=== PATIENT | female | born 1945 | race Caucasian/White ===

== ENCOUNTER → 2023-08-30 08:42 | Outpatient (REF) | payer MEDICARE, SELFPAY | LOC: RCS 08:42 | PROVIDERS: ATTENDING PHYSICIAN Internal Medicine Cardiovascular Disease; FAMILY PHYSICIAN Internal Medicine | DX: I50.22 Chronic systolic (congestive) heart failure (principal) | CPT/HCPCS: 93306 ==

== ENCOUNTER → 2023-12-31 12:37 | Outpatient (REF) | payer MEDICARE, SELFPAY ==
[2023-12-31 13:30] LABS: % Basophils 0.9 % (0-2); % Eosinophils 1.8 % (0-6); % Immature Granulocytes 0.5 % (0-0.5); % Monocytes 9.6 % (1.7-9.3); % Neutrophils 78.2 % (42.2-75.2); Absolute Basophils 0.1 10^3/uL (0-0.2); Absolute Eosinophils 0.1 10^3/uL (0-0.7); Absolute Lymphocytes 0.6 10^3/uL (1.2-3.4); Absolute Monocytes 0.6 10^3/uL (0.1-0.6); Absolute Neutrophils 5.2 10^3/uL (1.4-6.5); Hematocrit 40.3 % (37.0-47.0); Hemoglobin 12.9 g/dL (12.0-16.0); Mean Corpuscular Hgb 30.4 pg (27.0-31.0); Mean Corpuscular Volume 94.8 fL (81.0-99.0); Mean Platelet Volume 10.3 fL (7.4-10.4); Nucleated Red Blood Cells % 0 %; Platelet Count 226 10^3/uL (130-400); Red Blood Cell Count 4.25 10^6/uL (4.20-5.40); Red Cell Dist. Width 15.6 % (11.5-14.5); White Blood Cell Count 6.7 10^3/uL (4.8-10.8)
[2023-12-31 13:36] LABS: Urine Albumin Negative (Neg - Trace); Urine Bilirubin Negative (Negative); Urine Character Clear (Clear); Urine Color Yellow; Urine Glucose Negative (Negative); Urine Ketone Negative (Negative); Urine Leukocyte 1+ (Negative); Urine Nitrite Negative (Negative); Urine Occult Blood 1+ (Negative); Urine Urobilinogen Negative (Neg - 1+)
[2023-12-31 13:57] LABS: ALT (SGPT) 16 U/L (0-35); AST (SGOT) 33 U/L (14-36); Albumin 3.6 g/dl (3.5-5.0); Alkaline Phosphatase 285 U/L (38-126); Blood Urea Nitrogen 21 mg/dl (7-17); Calcium 9.2 mg/dl (8.4-10.2); Carbon Dioxide 25 mmol/L (22-30); Chloride 103 mmol/L (98-107); Glucose 102 mg/dl (70-99); Potassium 4.3 mmol/L (3.5-5.1); Sodium 141 mmol/L (135-145); Total Bilirubin 0.8 mg/dl (0.2-1.3); Total Protein 7.7 g/dl (6.3-8.2); eGFR 38.03
[2023-12-31 14:32] LABS: Urine Squamous Cell >30 /LPF (Few)
[2023-12-31 14:33] LABS: Urine Urothelial Cell 0-2 /LPF (FEW)
[2023-12-31 14:34] LABS: Urine Bacteria Few (Negative)
== END ==
LOC: REG 12:37
PROVIDERS: ATTENDING PHYSICIAN Nurse Practitioner Family; FAMILY PHYSICIAN Internal Medicine
DX: R10.10 Upper abdominal pain, unspecified (principal)
CPT/HCPCS: 36415; 80053; 81003; 81015; 85025; 87086

== ENCOUNTER 2024-01-04 21:19 | Emergency (ER) | payer MEDICARE, SELFPAY ==
[2024-01-04 21:21] VITALS: BP 111/55
--- NOTE | 2024-01-04 22:07 | ED.SKININJ ---
HPI-Injury
<DEANA Shay - Last Filed: 01/04/24 23:10>
General
Chief Complaint: Skin Surface Trauma
Source: patient and family
Exam Limitations: none
Time Seen by Provider: 01/04/24 22:06
Nursing documentation reviewed up to this point in time: agreed with
History of Present Illness-Injury
Initial Injury comments:
78F presenting for continuing bleeding of superficial abrasion caused by dog scratch on 01/03. Pt went to urgent care originally where they cleaned/dressed the wound. Pt reports the wound continues to bleed and she has had to change the
bandage multiple times, with the last change around 2 hours ago. Pt states dog is known to be UTD on immunizations. Pt is currently on Eliquis. Pt denies fever, chills, muscle aches, purulent discharge from the wound, falls, other trauma, dizziness,
or JUSTIN.
Past History
<DEANA Shay - Last Filed: 01/04/24 23:10>
Past History
ED Past Medical History: Arrthythmia, Cancer (skin cancer), CHF, HTN, NIDDM and Other (Atrial fibrillation and atrial flutter, diabetes, hypertension, nonischemic cardiomyopathy, breast cancer, diverticulitis)
ED Past Surgical History: Cardiac (Ablation, cardioversion 01/2018 ischemic, defibrillator)
Patient has exhibited threatening behavior?: No
PSI?: No
Social History
Tobacco: Non-smoker
Alcohol: None
Drug: None
Personal:
Living: with family
Employment: Retired
Family History
Family History: Other (Hypertension, cirrhosis)
Review of Systems
<DEANA Shay - Last Filed: 01/04/24 23:10>
Review of Systems
Allergies reviewed?: Yes
Other source history: family
Constitutional: Reports no symptoms
EENT: Reports no symptoms
Respiratory: Reports no symptoms
Cardiac: Reports no symptoms
ABD/GI: Reports no symptoms
: Reports no symptoms
Musculoskeletal: Reports no symptoms
Skin: Reports other (mild pain around area of injury)
Skin Exam
<ST JaspalMO - Last Filed: 01/04/24 23:10>
Abrasion
Right Posterior Lateral Knee:
Description of abrasion: superfical/clean (wound caused by dog scratch; clean and measuring ~3cm; not currently bleeding; necrotic flap over wound)
Phy Exam
<DEANA Shay - Last Filed: 01/04/24 23:10>
General Physical Exam
General Presentation: well appearing
General Skin: warm and dry
General Habitus: elderly
General Mental: alert
General Hydration: appears well hydrated
Cardiovascular Exam
Cardiovascular Exam: regular rate/rhythm
Pulmonary Exam
Pulmonary Exam: lungs clear
Course
<ST JaspalMO - Last Filed: 01/04/24 23:10>
Vital Signs
Initial and Last Documented VS:
Initial Vital Signs
Temp Pulse Resp BP Pulse Ox
97.9 F 63 18 111/55 92
01/04/24 21:21 01/04/24 21:21 01/04/24 21:21 01/04/24 21:21 01/04/24 21:21
Last Documented Vital Signs
Temp Pulse Resp BP Pulse Ox
97.9 F 63 18 111/55 92
01/04/24 21:21 01/04/24 21:21 01/04/24 21:21 01/04/24 21:21 01/04/24 21:21
<Kory Tenorio DO - Last Filed: 01/04/24 22:35>
Vital Signs
Initial and Last Documented VS:
Initial Vital Signs
Temp Pulse Resp BP Pulse Ox
97.9 F 63 18 111/55 92
01/04/24 21:21 01/04/24 21:21 01/04/24 21:21 01/04/24 21:21 01/04/24 21:21
Last Documented Vital Signs
Temp Pulse Resp BP Pulse Ox
97.9 F 63 18 111/55 92
01/04/24 21:21 01/04/24 21:21 01/04/24 21:21 01/04/24 21:21 01/04/24 21:21
<DEANA Shay - Last Filed: 01/04/24 23:10>
MDM/Problems Addressed
Differential Diagnosis Includes:
superficial abrasion of R posterior knee
<DEANA Shay - Last Filed: 01/04/24 23:10>
*Critical Care Note
Total Time (30-74mins, 75-104mins- exclusive of procedures): Not Applicable
ED Attending Note
<DEANA Shay - Last Filed: 01/04/24 23:10>
-
Portions of this chart may have been created with voice recognition software.� Occasional wrong word or��sound alike� substitutions may have occurred due to the inherent limitations of voice recognition software.
<Kory Tenorio DO - Last Filed: 01/04/24 22:35>
ED Attending Note
Patient seen and examined by attending physician: Yes
I performed the substantive portion of visit, reviewed & personally made and approve the management plan that is documented in note by myself or DIONISIO.: Yes
ED Attending Note:
I have seen and evaluated the patient with a [id number] encounter. I have spoken to the advance practicer provider and involved in the medical history, the physical exam, medical decision making.
Evaluation and management service: agree unless noted differently below.
Results interpretation: agree unless noted differently below.
Focused HPI: 78-year-old female presenting for evaluation of a dog scratch that continues to bleed. Patient was scratched in the back of her right knee a few days ago. Since then, it has continued to bleed. She is on Eliquis. She did follow-up
with urgent care and was placed on antibiotics and given a bandage. Patient is concerned because it continues to bleed
Physical exam: Sitting bed comfortably. No acute distress. Very small superficial abrasion to right popliteal fossa. No active bleeding but the bandage is covered in dried blood
Medical Decision Making: Gelfoam was placed on top of the exposed dermis. Bulky dressing applied and discussed return precautions. There is no evidence of surrounding cellulitis
Discharge Plan
Departure
Patient Disposition: Home (Routine Discharge)
Date of Disposition: 01/04/24
Time of Disposition: 22:33
Patient with high blood pressure during this ER visit?: No
Discharge Problem:
Wound drainage
Instructions: Wound Care (DC)
Prescriptions:
No Action
ferrous sulfate [FeroSul] 325 MG tablet
325 mg PO QPM
atorvastatin 40 MG tablet
40 mg PO QPM
escitalopram oxalate 10 MG tablet
10 mg PO DAILY
carvedilol [Coreg] 25 mg Tablet
25 mg PO BID
potassium chloride 10 mEq Capsule, Extended Release
10 meq PO BID
doxepin 10 mg Capsule
10 mg PO QPM
calcium polycarbophil [FiberCon] 625 mg Tablet
625 mg PO BID
Eliquis 5 mg Tablet
5 mg PO BID
furosemide 40 MG tablet
40 mg PO BID@0800,1600
Dupixent Syringe 300 mg/2 mL Syringe
300 mg SC Q7D Qty: 0
nifedipine 30 mg Tablet Extended Release
30 mg PO DAILY Qty: 30 0RF
acetaminophen [Tylenol] 325 mg Tablet
650 mg PO Q6HPRN PRN (Reason: mild pain)
cyanocobalamin (vitamin B-12) 1,000 mcg Tablet
1,000 mcg PO DAILY
pantoprazole [Protonix] 40 mg Tablet,Delayed Release (Dr/Ec)
40 mg PO DAILY
insulin lispro [Humalog KwikPen Insulin] 100 unit/mL Insulin Pen
0 sliding scale dose SC ACHS
Rx Instructions:
180-220=6 units, 261-300=10units, 301-350=12units, 351-400=14units
insulin glargine [Basaglar KwikPen U-100 Insulin] 100 unit/mL (3 mL) Insulin Pen
8 unit SC HS
magnesium oxide 400 mg magnesium Tablet
400 mg PO BID
loperamide 2 mg Capsule
2 mg PO Q6HPRN PRN (Reason: diarrhea)
cefdinir 300 mg capsule
300 mg PO BID Qty: 12 0RF
lidocaine [Lidoderm] 5 % adhesive patch,medicated
1 patch topical DAILY Qty: 15 0RF
Activity Restrictions/Additional Instructions:
Please keep the bandage in place for the next few days. Please return for any concern for infection or if it continues to bleed.
Interventions
Interventions:
*Risk Screen - Suicide Last Done: 01/04/24 21:20
*General Assessment Last Done: 01/04/24 22:46
*Neglect/Abuse Screening Last Done: 01/04/24 22:46
ED- Fall Risk Assessment Last Done: 01/04/24 22:46
*ED COVID-19 Vaccine History Last Done: 01/04/24 22:46
*Nursing Disposition Last Done: 01/04/24 22:48
ED-Skin Assessment Last Done: 01/04/24 22:46
Discharge Date and Time
Discharge Date/Time: 01/04/24 22:49
Print Language: [place]
== END 2024-01-04 22:49 | disposition home or self-care (01) ==
LOC: EMR 21:19
PROVIDERS: EMERGENCY PHYSICIAN Student in an Organized Health Care Education/Training Program; FAMILY PHYSICIAN Internal Medicine
DX: Z48.00 Encounter for change or removal of nonsurgical wound dressing (principal); S80.211A Abrasion, right knee, initial encounter; W54.8XXA Other contact with dog, initial encounter; Z79.01 Long term (current) use of anticoagulants
CPT/HCPCS: 99282

== ENCOUNTER → 2024-01-17 10:22 | Outpatient (REF) | payer MEDICARE, SELFPAY | LOC: HWRAD 10:22 | PROVIDERS: ATTENDING PHYSICIAN Nurse Practitioner Family; FAMILY PHYSICIAN Internal Medicine | DX: R10.10 Upper abdominal pain, unspecified (principal) | CPT/HCPCS: 76700 ==

== ENCOUNTER 2024-02-18 21:47 | Inpatient (IN) | payer MEDICARE, SELFPAY ==
--- NOTE | 2024-02-18 15:56 | ED.GENMED ---
ED Provider Triage
<Sarah Yo PA-C - Last Filed: 02/18/24 16:06>
-
Patient seen by provider in Triage?: Seen in Triage
Attestation: A medical screening examination has been initiated by a qualified medical provider. Based on the assessment performed at this time, it has been determined that an emergent medical condition may exist and the patient has been informed
that further medical evaluation and possible additional diagnostic testing may be needed.
HPI: 78yoF here with R leg pain and redness x 1 week. Had a fall around Ashish time. Sent in by her alf for concern for a DVT. Patient currently on Eliquis.
GENERAL: Alert , in no apparent distress
EYE: No visual abnormalities.
NECK: Trachea midline
ENT: No visible abnormalities.
LUNGS: No acute respiratory distress
NEUROLOGICAL: Alert and oriented
SKIN: Skin intact. No visible changes.
MUSCULOSKELETAL: Moving extremities normally
PSYCH: Normal and appropriate interaction.
This is a medical evaluation conducted in person to initiate diagnostic evaluation and provide initial therapeutics. Please see further documentation by the treating clinician.
CBC, CMP, and venous duplex ordered.
History of Present Illness
<Sarah Yo PA-C - Last Filed: 02/18/24 16:06>
General
Chief Complaint: DVT/Possible Blood Clot
Time Seen by Provider: 02/18/24 17:29
<Efra Aponte PA-C - Last Filed: 02/18/24 20:38>
History of Present Illness
History of Present Illness:
78-year-old female with history of insulin-dependent diabetes and A-fib on Eliquis presents to the emergency department for evaluation of right lower extremity redness and pain for the past 10 days. She had a minor fall and suffered a minor
injury/wound to the right popliteal area, since that time has had progressively worsening redness extending up the right thigh. She is also concern for 'belly breathing' that typically accompanies acute CHF for her. Has been compliant with her
anticoagulants and diuretics
Past History
<Sarah Yo PA-C - Last Filed: 02/18/24 16:06>
Past History
ED Past Medical History: Arrthythmia, Cancer (skin cancer), CHF, HTN, NIDDM and Other (Atrial fibrillation and atrial flutter, diabetes, hypertension, nonischemic cardiomyopathy, breast cancer, diverticulitis)
ED Past Surgical History: Cardiac (Ablation, cardioversion 01/2018 ischemic, defibrillator)
Patient has exhibited threatening behavior?: No
PSI?: No
Social History
Tobacco: Non-smoker
Alcohol: None
Drug: None
Personal:
Living: with family
Employment: Retired
Family History
Family History: Other (Hypertension, cirrhosis)
Review of Systems
<Efra Aponte PA-C - Last Filed: 02/18/24 20:38>
Review of Systems
Allergies reviewed?: Yes
All Other Systems: ROS reviewed and negative except as documented in HPI and ROS
Phy Exam
<Efra Aponte PA-C - Last Filed: 02/18/24 20:38>
Physical Exam
Physical Exam:
GEN: Well appearing, NAD, WDWN
HEENT: Oral mucosa moist, no scleral icterus
Cardiac: Regular rate
Lung: Tachypneic with abdominal breathing, diminished right breath sounds
MSK: Diffuse edema of the right lower extremity, linear erythema extending from the right popliteal fossa proximally along the medial thigh, markedly tender to palpation
Skin: Good color, no pallor or jaundice, no rashes
Neuro: AO x3, moves all extremities freely
Psych: Calm, cooperative
Course
<Sarah Yo PA-C - Last Filed: 02/18/24 16:06>
Orders/Labs/Results
Orders:
Orders
02/18/24 15:52
Periph Venous Lwr Ext Rt US [US Periph Venous LOWER Ext RT] Urgent
Comment:
Reason For Exam: pain and swelling
02/18/24 16:04
Complete Blood Count/With Diff Urgent
Comprehensive Metabolic Panel Urgent
02/18/24 18:30
IV Insert/Care/Rem.- Treatment PRN
CR Chest - 2 Views Urgent
Comment:
Reason For Exam: SOB
02/18/24 18:31
CeFAZolin 2 GRAM [Ancef] 2 grams in 10 ml IV NOW
02/18/24 18:54
NT-proBNP Urgent
Troponin I Urgent
02/18/24 19:43
Furosemide [Lasix] 40 mg IV ONCE ONE
Abnormal Lab Results
02/18/24 02/18/24
16:04 19:02
MCHC 32.9 L g/dL
(33.0-37.0)
RDW 15.6 H %
(11.5-14.5)
MPV 10.5 H fL
(7.4-10.4)
Absolute Lymphs (auto) 0.6 L 10^3/uL
(1.2-3.4)
Neutrophils % 79.8 H %
(42.2-75.2)
Lymphocytes % 7.9 L %
(20.5-51.1)
Sodium 133 L mmol/L
(135-145)
Carbon Dioxide 21 L mmol/L
(22-30)
BUN 31 H mg/dl
(7-17)
Creatinine 2.0 H mg/dL
(0.6-1.0)
Glucose 145 H mg/dl
(70-99)
Alkaline Phosphatase 304 H U/L
(38-126)
POC Glucose 129 H mg/dl
(70-99)
02/18/24 16:04
02/18/24 16:04
Vital Signs
Initial and Last Documented VS:
Initial Vital Signs
Temp Pulse Resp BP Pulse Ox
97.4 F 86 17 107/51 97
02/18/24 15:58 02/18/24 15:58 02/18/24 15:58 02/18/24 15:58 02/18/24 15:58
Last Documented Vital Signs
Temp Pulse Resp BP Pulse Ox
97.4 F 65 20 117/51 90
02/18/24 15:58 02/18/24 20:22 02/18/24 20:22 02/18/24 20:22 02/18/24 20:22
<fEra Aponte PA-C - Last Filed: 02/18/24 20:38>
Orders/Labs/Results
Orders:
Orders
02/18/24 15:52
Periph Venous Lwr Ext Rt US [US Periph Venous LOWER Ext RT] Urgent
Comment:
Reason For Exam: pain and swelling
02/18/24 16:04
Complete Blood Count/With Diff Urgent
Comprehensive Metabolic Panel Urgent
02/18/24 18:30
IV Insert/Care/Rem.- Treatment PRN
CR Chest - 2 Views Urgent
Comment:
Reason For Exam: SOB
02/18/24 18:31
CeFAZolin 2 GRAM [Ancef] 2 grams in 10 ml IV NOW
02/18/24 18:54
NT-proBNP Urgent
Troponin I Urgent
02/18/24 19:43
Furosemide [Lasix] 40 mg IV ONCE ONE
Abnormal Lab Results
02/18/24 02/18/24
16:04 19:02
MCHC 32.9 L g/dL
(33.0-37.0)
RDW 15.6 H %
(11.5-14.5)
MPV 10.5 H fL
(7.4-10.4)
Absolute Lymphs (auto) 0.6 L 10^3/uL
(1.2-3.4)
Neutrophils % 79.8 H %
(42.2-75.2)
Lymphocytes % 7.9 L %
(20.5-51.1)
Sodium 133 L mmol/L
(135-145)
Carbon Dioxide 21 L mmol/L
(22-30)
BUN 31 H mg/dl
(7-17)
Creatinine 2.0 H mg/dL
(0.6-1.0)
Glucose 145 H mg/dl
(70-99)
Alkaline Phosphatase 304 H U/L
(38-126)
POC Glucose 129 H mg/dl
(70-99)
02/18/24 16:04
02/18/24 16:04
Vital Signs
Initial and Last Documented VS:
Initial Vital Signs
Temp Pulse Resp BP Pulse Ox
97.4 F 86 17 107/51 97
02/18/24 15:58 02/18/24 15:58 02/18/24 15:58 02/18/24 15:58 02/18/24 15:58
Last Documented Vital Signs
Temp Pulse Resp BP Pulse Ox
97.4 F 65 20 117/51 90
02/18/24 15:58 02/18/24 20:22 02/18/24 20:22 02/18/24 20:22 02/18/24 20:22
<Efra Aponte PA-C - Last Filed: 02/18/24 20:38>
MDM/Problems Addressed
MDM/Problems Addressed:
Patient with extensive cellulitis of the right lower extremity, certainly concerning that she has chronic kidney disease and thus is high risk for infectious complications. Additionally she appears to be moderately volume overloaded and thus will
benefit from inpatient stay for diuresis while monitoring renal function
<Efra Aponte PA-C - Last Filed: 02/18/24 20:38>
*Critical Care Note
Total Time (30-74mins, 75-104mins- exclusive of procedures): Not Applicable
ED Attending Note
<Sarah Yo PA-C - Last Filed: 02/18/24 16:06>
-
Portions of this chart may have been created with voice recognition software.� Occasional wrong word or��sound alike� substitutions may have occurred due to the inherent limitations of voice recognition software.
Discharge Plan
Departure
Patient Disposition: Admit
Date of Disposition: 02/18/24
Time of Disposition: 20:14
Admit to: Med/Surg
Presentation/result/management discussed w/ accepting MD/DO: Hospitalist
Discharge Problem:
Cellulitis of leg, right, Acute HFrEF (heart failure with reduced ejection fraction)
Prescriptions:
No Action
ferrous sulfate [FeroSul] 325 MG tablet
325 mg PO QPM
atorvastatin 40 MG tablet
40 mg PO QPM
escitalopram oxalate 10 MG tablet
10 mg PO DAILY
carvedilol [Coreg] 25 mg Tablet
25 mg PO BID
potassium chloride 10 mEq Capsule, Extended Release
10 meq PO QPM
doxepin 10 mg Capsule
10 mg PO QPM
calcium polycarbophil [FiberCon] 625 mg Tablet
625 mg PO BID
Eliquis 5 mg Tablet
5 mg PO BID
furosemide 40 MG tablet
40 mg PO BID@0800,1600
nifedipine 30 mg Tablet Extended Release
30 mg PO DAILY Qty: 30 0RF
cyanocobalamin (vitamin B-12) 1,000 mcg Tablet
1,000 mcg PO QPM
pantoprazole [Protonix] 40 mg Tablet,Delayed Release (Dr/Ec)
40 mg PO DAILY
insulin lispro [Humalog KwikPen Insulin] 100 unit/mL Insulin Pen
0 sliding scale dose SC BID
insulin glargine [Basaglar KwikPen U-100 Insulin] 100 unit/mL (3 mL) Insulin Pen
6 unit SC HS
magnesium oxide 400 mg magnesium Tablet
400 mg PO QPM
cetirizine 10 mg Tablet
10 mg PO DAILY
Referrals:
Clay Gibbs DO [Family Provider] -
Interventions
Interventions:
*Risk Screen - Suicide Last Done: 02/18/24 16:00
*General Assessment Last Done: 02/18/24 16:00
*Neglect/Abuse Screening Last Done: 02/18/24 16:00
*ED COVID-19 Vaccine History Last Done: 02/18/24 16:00
ED- Cardiac Assessment Last Done: 02/18/24 18:28
ED- Pulmonary Assessment Last Done: 02/18/24 18:28
ED-Peripheral Vascular Assessment Last Done: 02/18/24 18:28
ED-Skin Assessment Last Done: 02/18/24 18:28
Discharge Date and Time
Print Language: SAMMARINESE
[2024-02-18 15:58] VITALS: BP 107/51
[2024-02-18 16:30] LABS: % Basophils 0.9 % (0-2); % Eosinophils 2.3 % (0-6); % Immature Granulocytes 0.4 % (0-0.5); % Lymphocytes 7.9 % (20.5-51.1); % Monocytes 8.7 % (1.7-9.3); % Neutrophils 79.8 % (42.2-75.2); Absolute Basophils 0.1 10^3/uL (0-0.2); Absolute Eosinophils 0.2 10^3/uL (0-0.7); Absolute Lymphocytes 0.6 10^3/uL (1.2-3.4); Absolute Monocytes 0.6 10^3/uL (0.1-0.6); Absolute Neutrophils 5.6 10^3/uL (1.4-6.5); Hematocrit 40.4 % (37.0-47.0); Hemoglobin 13.3 g/dL (12.0-16.0); Mean Corp Hgb Conc. 32.9 g/dL (33.0-37.0); Mean Corpuscular Hgb 30.2 pg (27.0-31.0); Mean Corpuscular Volume 91.8 fL (81.0-99.0); Mean Platelet Volume 10.5 fL (7.4-10.4); Nucleated Red Blood Cells % 0 %; Platelet Count 233 10^3/uL (130-400); Red Cell Dist. Width 15.6 % (11.5-14.5); White Blood Cell Count 7.1 10^3/uL (4.8-10.8)
[2024-02-18 16:35] LABS: ALT (SGPT) 15 U/L (0-35); AST (SGOT) 30 U/L (14-36); Albumin 3.8 g/dl (3.5-5.0); Alkaline Phosphatase 304 U/L (38-126); Blood Urea Nitrogen 31 mg/dl (7-17); Calcium 9.1 mg/dl (8.4-10.2); Carbon Dioxide 21 mmol/L (22-30); Chloride 100 mmol/L (98-107); Glucose 145 mg/dl (70-99); Potassium 4.7 mmol/L (3.5-5.1); Sodium 133 mmol/L (135-145); Total Bilirubin 1.1 mg/dl (0.2-1.3); Total Protein 7.7 g/dl (6.3-8.2); eGFR 24.79
[2024-02-18 19:07] LABS: Glucose - Point of Care 129 mg/dl (70-99)
[2024-02-18 19:36] LABS: NT-proBNP 11200 pg/ml; Troponin I < 0.012 ng/ml
[2024-02-18] MEDS: ANCEF 10 IV (19:42)
[2024-02-18] MEDS: LASIX 40 MG IV (20:16)
[2024-02-18 20:22] VITALS: BP 117/51
[2024-02-18 20:23] VITALS: BMI 21.7
--- NOTE | 2024-02-18 20:24 | HPS.HSE ---
Family Physician
-
Family Physician: Clay Gibbs
Chief Complaint
-
right LE redness
History of Present Illness
78-year-old female with history of insulin-dependent diabetes and A-fib on Eliquis presents to the emergency department for evaluation of right lower extremity redness for more than a week. She had a minor fall and suffered a minor injury/wound to
the right popliteal area, since that time has had progressively worsening redness extending up the right thigh. She is also concern for 'belly breathing' that typically accompanies acute CHF for her. Has been compliant with her anticoagulants and
diuretics. denied JUSTIN, dizzy or syncope. denied runny nose,congestion, cough. denied abdominal pain,n,v,d. denied dysuria or hematuria.
patient received Lasix in Er. admitting for further management.
patient also received iv Ancef in Er.admitting for further managements.
Medical History
Past Medical History
Past Medical History: Reports Other
Additional Past Medical History:
GERD
Hyperlipidemia
Hypertension
A flutter
Diabetes
Depression
Iron deficiency anemia
Chronic systolic heart failure
AICD
Pulmonary hypertension
CAD
Permanent A-fib
Past Surgical History: Reports Other
Additional Past Surgical History:
Cardioversion
Cataract right eye
Left breast lumpectomy
Pacemaker placement
Cardiac ablation
Social History
Tobacco: Non-smoker
Alcohol: None
Drug: None
Personal:
Living: With Family
Family History
Family History: Not pertinent
Allergies / Home Medications
Allergies reflects when Allergies were last updated in trend[employer].
Home Medications with original date entered in trend[employer]
Allergy/Medication List:
Allergies
Allergy/AdvReac Type Severity Reaction Status Date / Time
RICK Inhibitors Allergy upset Verified 02/18/24 15:57
stomach
amoxicillin [From Augmentin] Allergy upset Verified 02/18/24 15:57
stomach
clavulanic acid Allergy upset Verified 02/18/24 15:57
[From Augmentin] stomach
Home Medications
ferrous sulfate 325 mg (65 mg iron) tablet (FeroSul) 325 mg PO QPM Supplement 06/11/18
atorvastatin 40 mg tablet 40 mg PO QPM High cholesterol 11/08/20
escitalopram oxalate 10 mg tablet 10 mg PO DAILY Depression 05/04/21
apixaban 5 mg tablet (Eliquis) 5 mg PO BID Blood clot prevention/tx 03/28/22
calcium polycarbophil 625 mg tablet (FiberCon) 625 mg PO BID Constipation 03/28/22
carvedilol 25 mg tablet (Coreg) 25 mg PO BID Heart Failure 03/28/22
doxepin 10 mg capsule 10 mg PO QPM Depression 03/28/22
furosemide 40 mg tablet 40 mg PO BID@0800,1600 Fluid retention/Swelling 03/28/22
potassium chloride 10 mEq capsule,extended release 10 meq PO QPM Electrolyte Repletion 03/28/22
nifedipine 30 mg tablet,extended release 30 mg PO DAILY Blood pressure #30 tabs 05/11/22
cyanocobalamin (vitamin B-12) 1,000 mcg tablet 1,000 mcg PO QPM 09/25/22
insulin glargine 100 unit/mL (3 mL) subcutaneous pen (Basaglar KwikPen U-100 Insulin) 6 unit SC HS 09/25/22
insulin lispro 100 unit/mL subcutaneous pen (Humalog KwikPen (U-100) Insulin) 0 sliding scale dose SC BID 09/25/22
magnesium oxide 400 mg PO QPM 09/25/22
pantoprazole 40 mg tablet,delayed release (Protonix) 40 mg PO DAILY 09/25/22
cetirizine 10 mg tablet 10 mg PO DAILY 02/18/24
Review of Systems
-
Constitutional: Reports No Symptoms
EENT: Reports No Symptoms
Respiratory: Reports Trouble Breathing
Cardiac: Reports No Symptoms
Abdomen/GI: Reports No Symptoms
: Reports No Symptoms
Musculoskeletal: Reports No Symptoms
Skin: Reports Other (right LE redness, wound)
Neurological: Reports No Symptoms
Endocrine: Reports No Symptoms
Hematologic/Lymphatic: Reports No Symptoms
Psych: Reports No Symptoms
Physical Exam
Vital Signs
Vital Signs
Temp Pulse Resp BP Pulse Ox
97.4 F 65 20 117/51 90
02/18/24 15:58 02/18/24 20:22 02/18/24 20:22 02/18/24 20:22 02/18/24 20:22
Physical Exam
General: Well Developed, Well Nourished and No Apparent Distress
HEENT: NormoCephalic, Moist mucous membranes and Atraumatic
Respiratory: Clear
Cardiac: S1/S2 and Regular Rhythm; No Murmur or Rub
GI: Soft, Non Tender, Non Distended and Normal Bowel Sounds; No Organomegaly
Rectal: Deferred by Provider
Musculoskeletal: No Clubbing, No Cyanosis and No Edema
Skin: Other (right Le edema, skin abrasion); No Rash
Neuro: AO x 3 and Nonfocal/grossly intact
Psych: Calm
Laboratory Results
-
02/18/24 16:04
02/18/24 16:04
Laboratory Results
Total Bilirubin 1.1 mg/dl (0.2-1.3) 02/18/24 16:04
AST 30 U/L (14-36) 02/18/24 16:04
ALT 15 U/L (0-35) 02/18/24 16:04
Alkaline Phosphatase 304 U/L (38-126) H 02/18/24 16:04
Troponin I < 0.012 ng/ml 02/18/24 18:54
Data Reviewed
-
Diagnostic Radiology: Report Reviewed by me
Lab Data: Labs Reviewed by me
Impression/Plan
-
# Right lower extremity cellulitis
-Duplex negative for deep
-iv Ancef continued
-Tylenol prn for fever and pain
#acute on chronic CHF's
-BNP 11 200
-Chest x-ray with pleural effusion, cardiomegaly
-iv Lasix 40bid
-strict I &O
-daily weight
-fluid restriction
-ECHO with EF of 45-50%
# KRYSTAL on CKD 3B likely cardiorenal syndrome
# Hyponatremia likely fluid overload
-diuretics
-fluid restriction
-BMP in am
#Parox Atrial Fibrillation
- continue Eliquis
- continue Coreg
-obtain EKG
#HLD
-statin continued
#depression
-doxepin,escitalopram continued
Essential hypertension - stable.
-nifedipine continued
#GERD
_PPI continued
#DM2
glargine 3u at hs
-sliding scale
-CHO diet
DVT ppx: Eliquis
Code: Full
--- NOTE | 2024-02-18 20:48 | W.PN.UPDATE ---
Update Note
Progress Note Update
This note serves as an addendum to the H&P by cpht DIONISIO Leticia COOPER
HPI
78F HX IDDM, Prx AF, Eliquis, HX Ablation, cardioversion 01/2018 , defibrillator implant, chr HFmEF, NICM, severe PHT, CKD3b, HTN, NIDDM seen at ER:
- minor fall and suffered a minor injury/wound to the right popliteal area
- complicated by progressively worsening redness extending up the right thigh in last 10 days
Vital Signs
Temp Pulse Resp BP Pulse Ox
97.4 F 65 20 117/51 90
02/18/24 15:58 02/18/24 20:22 02/18/24 20:22 02/18/24 20:22 02/18/24 20:22
PE:
BMI 16
GEN: NAD
HEENT: Oral mucosa moist, no scleral icterus
Lung: Tachypneic, diminished right breath sounds
Cardiac: RRR S1 S2
GI; benign abdomen
Rt Ara: diffuse edema. Proximal wound covered by scab. linear erythema extending from the right popliteal fossa proximally along the medial thigh. Markedly tender to palpation
Psych: calm, cooperative
Laboratory Tests
05/07/21 12/31/23 02/18/24
04:33 13:05 16:04
WBC 7.1
Sodium 133 L
Carbon Dioxide 21 L
BUN 31 H
Creatinine 1.4 H 2.0 H
eGFR 38.03 24.79
Troponin I < 0.012
Opr-D-Pkhvimppphe Pept 3900 [id number]
POC Glucose 129
CXR; Small right pleural effusion. Cardiomegaly
08/30/23 ECHO
1. LVEF 45-50
2. Right ventricle: Normal size. An ICD wire is noted in the right ventricle
3. Atria: Moderate biatrial dilation
4. Mitral valve: Moderate to severe mitral regurgitation. No mitral stenosis
5. Aortic valve: Mildly thickened trileaflet aortic valve with moderate aortic insufficiency
6. Tricuspid valve: Moderate to severe tricuspid regurgitation with severe pulmonary hypertension and estimated pulmonary artery systolic pressures of 65- 70 mmHg
7. When compared to the most recent echocardiogram from 05/30/2022, The LVEF has improved slightly from 35-40% to 45-50%. Estimated pulmonary artery systolic pressures have increased from 53-58 mmHg to 65-70 mmHg
ASSESSMENT & PLAN
RLE cellulitis with lymphangitis
Afebrile. Nl WCC
Suspect infected skin laceration s/p mechanical fall
No prior MRSA screen
- check MRSA screen
- Agree with IV Cefazolin 2 gm q8h
Acute on chronic Chr HFmEF
Acute Hypoxic RI needs NC O2 due to acut HF
Interval improvement of LVEF 45-50 by serail ECHO
Severe PHT
- S/P IV Lasix 40 one dose at ER. Then IV Lasix 40 BID
- cont. Carvedilol
- Daily Wt + daily BMP
- DCA Card consult
Chronically elevated LFTs susct chr hepatic congestion due to sevre PHT
Prx AF
- continue Eliquis
- continue Coreg
HX CKD3b with KRYSTAL - cardiorenal syndrome vs volume contraction ?
- Diuresis and observe Cr
Benign Hypertension
- continue Nifedipine
T2DM
Last A1c is 8.0% in August 2023
- cont. Lantus 25 units HS, Novolog 7 units
Eczema/Atopic Dermatitis
- on Dupilumab
DVT ppx: Eliquis
Code: Full
IP TLM
[2024-02-18 20:56] VITALS: BP 126/59
[2024-02-18 21:00] VITALS: BP 123/75
[2024-02-18 22:00] VITALS: BP 118/53
[2024-02-18 22:18] LABS: Glucose - Point of Care 141 mg/dl (70-99)
[2024-02-18 23:00] VITALS: BP 118/50
[2024-02-18] MEDS: LANTUS 0.03 UNITS SC (23:52)
[2024-02-19] VITALS (18 sets, daily range): BP systolic 108–152; BP diastolic 51–74; PULSE 111; O2SAT 89; BMI 21.4
[2024-02-19] MEDS: ANCEF 10 IV (04:09)
[2024-02-19 06:09] LABS: Blood Urea Nitrogen 28 mg/dl (7-17); Calcium 8.8 mg/dl (8.4-10.2); Carbon Dioxide 27 mmol/L (22-30); Chloride 101 mmol/L (98-107); Estimated Creatinine Clearance 17 ml/min; Glucose 82 mg/dl (70-99); HDL Cholesterol 40 mg/dl; LDL Cholesterol, Calculated 49 mg/dl; Magnesium 2.1 mg/dl (1.6-2.3); Potassium 3.8 mmol/L (3.5-5.1); Sodium 138 mmol/L (135-145); Total Cholesterol 105 mg/dl (50-199); Triglyceride 84 mg/dl (10-149); Very Low Density Lipoprotein 16 mg/dl (0-30); eGFR 26.36
[2024-02-19 06:34] LABS: TSH Reflex To Free T4 2.05 uIU/ml (0.47-4.68)
--- NOTE | 2024-02-19 07:20 | CON.CAR ---
Addendum entered and electronically signed by Dannie Painter MD 02/19/24 09:54:
I saw and examined the patient.
The Correction Officer's note was reviewed and I agree with the note.
Comment:
GEN: No distress, awake, Ox3
HEENT: supple, anicteric, mmm
LUNGS: dec BS at bases
CV: Reg, S1/S2, 2/6 syst apex
ABD: soft, BS+, NT/ND
EXT: No edema
NEURO: Gross non-focal
SKIN: No rash
Plan:
She has a past medical history of chronic heart failure with mildly reduced ejection fraction, EF 45 to 50%, moderate to severe MR/TR, permanent A-fib status post PRICE LISTER-D and AV node ablation who presents with right lower extremity pain. She states
she has had pain for several days and she was on the floor of her daughter's home. She was also having some abdominal bloating. Upon arrival emergency room she was found to have acute heart failure with an elevated proBNP and right pleural
effusion. She denies any chest pains.
Check repeat echocardiogram.
Start Lasix 40 mg IV twice daily. Continue Coreg 25 mg p.o. twice daily.
She has not tolerated RICK inhibitors in the past. Could consider trial of angiotensin receptor brad. Will await repeat echocardiogram to reevaluate LVEF. For now continue nifedipine.
Continue Eliquis for permanent A-fib status post AV node ablation and PRICE LISTER-D
Will evaluate for cost for SLG 2 inhibitor
Original Note:
Consultation
Consultation Request
Date/Time Consultation Requested: 02/18/24 at 2158
Date/Time Consultation Performed: 02/19/24 at 0747
Requesting Provider: Dr. Drake Brownlee
Performing Provider: Dr. Painter
Reason for Consultation: Acute HF, MR
Medical History
-
History of Present Illness:
Patient came to [facility] ER yesterday with RLE pain and was admitted with acute HF and cardiology has been consulted. Patient was seen in the cardiology office 08/01/2023 and at that time appeared to be in acute HF and was started on
Lasix 40 mg twice daily. Patient called the office and also sent web encounters describing overall improvement in edema in the last couple of months. Patient says that over the holiday she was at her daughter's home and rolled out of her
guest room bed and landed on the floor injuring her RLE including a deeper abrasion and pain. Patient felt as though she was improving, but then yesterday the pain became worse and so she came to [facility] ER. LE U/S showed no evidence
of DVT. CXR was read as a small right pleural effusion and proBNP was elevated at 11,200. Patient complains of abdominal bloating, but denies any orthopnea. She also notes some GRAHAM, but again this was not her primary complaint coming to the ER.
Patient was given Lasix 40 mg IV x 1 in the ER last night reports increased urine output, but no appreciable difference in abdominal bloating.
PMH:CKD 3b
Chronic HFrEF
CM EF 45% by echo 08/30/23
Severe MR
CM EF was 25-30% by echo 2020, improved to 45% by echo 08/30/23
Pulmonary hypertension
s/p Medtronic PRICE LISTER-D
Permanent Afib
s/p PVI 06/2018
s/p AVJ ablation 12/05/20
Paroxysmal atrial Flutter
s/p CTI RFA 12/2017
Chronic Eliquis OAC
HTN
DM
Breast cancer s/p lumpectomy
H/o lung micronodules
H/o T12 compression fracture
Past Medical History
Past Medical History: Other (in HPI)
Past Surgical History: Cardiac (PVI 2017, AVN ablation 11/2020, PPM)
Social History
Tobacco: Non-Smoker
Alcohol: None
Drug: None
Personal:
Living: With Family
Family History
Family History: Cancer, Hypertension and Other (CHF)
Allergies / Home Medications
Allergy/AdvReac Type Severity Reaction Status Date / Time
RICK Inhibitors Allergy upset Verified 02/18/24 15:57
stomach
amoxicillin [From Augmentin] Allergy upset Verified 02/18/24 15:57
stomach
clavulanic acid Allergy upset Verified 02/18/24 15:57
[From Augmentin] stomach
�Medication �Instructions �Recorded �Confirmed �Type
ferrous sulfate 325 mg (65 mg 325 mg PO QPM Supplement 06/11/18 02/18/24 History
iron) tablet (FeroSul)
atorvastatin 40 mg tablet 40 mg PO QPM High cholesterol 11/08/20 02/18/24 History
escitalopram oxalate 10 mg tablet 10 mg PO DAILY Depression 05/04/21 02/18/24 History
apixaban 5 mg tablet (Eliquis) 5 mg PO BID Blood clot 03/28/22 02/18/24 History
prevention/tx
calcium polycarbophil 625 mg 625 mg PO BID Constipation 03/28/22 02/18/24 History
tablet (FiberCon)
carvedilol 25 mg tablet (Coreg) 25 mg PO BID Heart Failure 03/28/22 02/18/24 History
doxepin 10 mg capsule 10 mg PO QPM Depression 03/28/22 02/18/24 History
furosemide 40 mg tablet 40 mg PO BID@0800,1600 Fluid 03/28/22 02/18/24 History
retention/Swelling
potassium chloride 10 mEq 10 meq PO QPM Electrolyte Repletion 03/28/22 02/18/24 History
capsule,extended release
nifedipine 30 mg tablet,extended 30 mg PO DAILY Blood pressure #30 05/11/22 02/18/24 Rx
release tabs
cyanocobalamin (vitamin B-12) 1,000 mcg PO QPM 09/25/22 02/18/24 History
1,000 mcg tablet
insulin glargine 100 unit/mL (3 6 unit SC HS 09/25/22 02/18/24 History
mL) subcutaneous pen (Basaglar
KwikPen U-100 Insulin)
insulin lispro 100 unit/mL 0 sliding scale dose SC BID 09/25/22 02/18/24 History
subcutaneous pen (Humalog KwikPen
(U-100) Insulin)
magnesium oxide 400 mg PO QPM 09/25/22 02/18/24 History
pantoprazole 40 mg tablet,delayed 40 mg PO DAILY 09/25/22 02/18/24 History
release (Protonix)
cetirizine 10 mg tablet 10 mg PO DAILY 02/18/24 02/18/24 History
Review of Systems
-
History Source: Patient
All other systems: Negative unless noted
Physical Exam
Vital Signs
Temp Pulse Resp BP Pulse Ox
98.6 F 60 19 136/61 92
02/18/24 22:23 02/19/24 04:01 02/19/24 04:01 02/19/24 04:01 02/19/24 04:01
GEN: NAD. AAOx3
HEENT: EOMI, MMM
LUNGS: 3 L NC. Clear anterolaterally without wheeze
CV: Reg, S1/S2, no murmur
ABD: soft, BS+, NT, ND
EXT: Trace B/L LE edema. Right popliteal fossa ecchymosis and firmness. No clubbing, cyanosis or lesions B/L
NEURO: Gross non-focal
SKIN: Warm, dry and pink. No rash
Lab Results
02/18/24 16:04
02/19/24 05:29
Troponin I < 0.012 ng/ml 02/18/24 18:54
Gus-P-Ekvyzljmiok Pept 14563 pg/ml 02/18/24 18:54
Impression / Plan
-
PCP: Clay Barahona
CDY: Erick Sangrigoli
Impression:
Admitted with RLE pain and CHF 02/18/24
KRYSTAL on CKD 3b
Acute HFrEF
CM EF 45% by echo 08/30/23
Severe MR
CM EF was 25-30% by echo 2020, improved to 45% by echo 08/30/23
Pulmonary hypertension
s/p Medtronic PRICE LISTER-D
Permanent Afib
s/p PVI 06/2018
s/p AVJ ablation 12/05/20
Paroxysmal atrial Flutter
s/p CTI RFA 12/2017
Chronic Eliquis OAC
HTN
DM
Breast cancer s/p lumpectomy
H/o lung micronodules
H/o T12 compression fracture
Echo 10/20/20: Moderately to severely reduced EF 25-30% with global hypokinesis, stage III diastolic dysfunction, mildly dilated RA, moderate to severe MR, mild aortic regurgitation
Echo 08/30/2023: EF 45 to 50%, moderate to severe MR, no MS, moderate aortic insufficiency, moderate to severe TR with severe PHTN and PAP 65 to 70 mmHg
Plan:
-Patient came to [facility] ER yesterday with RLE pain and was admitted with acute HF and cardiology has been consulted. Patient was seen in the cardiology office 08/01/2023 and at that time appeared to be in acute HF and was started on
Lasix 40 mg twice daily. Patient called the office and also sent web encounters describing overall improvement in edema in the last couple of months. Patient says that over the holiday she was at her daughter's home and rolled out of her
guest room bed and landed on the floor injuring her RLE including a deeper abrasion and pain. Patient felt as though she was improving, but then yesterday the pain became worse and so she came to [facility] ER. LE U/S showed no evidence
of DVT. CXR was read as a small right pleural effusion and proBNP was elevated at 11,200. Patient complains of abdominal bloating, but denies any orthopnea. She also notes some GRAHAM, but again this was not her primary complaint coming to the ER.
Patient was given Lasix 40 mg IV x 1 in the ER last night reports increased urine output, but no appreciable difference in abdominal bloating.
-ECG has not yet been performed this admission. ECG ordered by me. ECG reviewed by me shows typical atrial flutter with a heart rate in the 60s and QTc at 518.
-proBNP is elevated at 11,200, but is not the patient's highest level ever. There is a small right pleural effusion, but no evidence of pulmonary edema. Patient does have bloating and GRAHAM so agree with attempted IV diuresis with Lasix 40 mg IV
BID. Patient was taking Lasix 40 mg PO BID prior to admission. If no appreciable diuresis then could consider increasing dose of IV Lasix
-Recheck echo. EF was previously as low as 25% in 2020, but most recently had improved to 45 to 50% by echo 08/30/2023. Distally patient has moderate to severe MR.
-It is not clear if patient has ever been considered for mitral valve intervention.
-Outpatient dose of Coreg 25 mg twice daily has been continued
-Patient has a history of dyspepsia related to RICK inhibitor. Pending renal function with diuresis could consider adding ARB
-Patient has a history of allergic reaction to Jardiance. Reaction unknown.
-Patient with known permanent A-fib/flutter and is status post AVJ ablation in 2020. Heart rates controlled on ECG and telemetry review.
-Outpatient dose of Eliquis 5 mg BID (Cre 1.9, age 78, wt 49.6 kg) has been continued, but dose should be lowered to 2.5 mg BID based on changes to age, Cre and wt. Order changed by me.
[2024-02-19] MEDS: NOVOLOG FLEXPEN-LOW RESISTANCE SC ×2 (07:57→12:18)
[2024-02-19 07:58] LABS: Glucose - Point of Care 77 mg/dl (70-99)
[2024-02-19 09:03] LABS: Glycohemoglobin (HgbA1c) 5.8 % (4.0-5.6)
--- NOTE | 2024-02-19 09:32 | W.PN.HOSP.TC ---
Today's Communication/Plan
-
Maintain diuretics
Follow renal function
Follow weight
continue ancef
Assessment / Plan
Assessment / Plan
# Right lower extremity cellulitis
-Lower extremity venous Doppler negative
-Patient to mechanical fall few days back and scabbed up wound on right lower extremity and right upper arm
-Nothing on exam to suggest deeper collection/purulent cellulitis
-History of diabetes, maintain on Ancef for now
# Acute on chronic midrange heart failure
Severe MR
Pulmonary hypertension
-BNP 11 200
-Chest x-ray with pleural effusion, cardiomegaly. Surprisingly on exam no crackles/no leg swelling
-Maintain on IV Lasix 40 mg twice daily
-Patient have lost significant weight and currently down to 49.5 kg
-Cardiology following and considering a repeat echocardiogram
# KRYSTAL on CKD 3B likely cardiorenal syndrome
# Hyponatremia - resolved
-Baseline creatinine 1.2-1.4, cr 1.9 this admit
-Maintain on fluid restriction
-Follow renal function with diuresis
# Permanent atrial fibrillation
History of PVI/AVJ ablation
Paroxysmal atrial flutter
- continue Eliquis
- continue Coreg
-obtain EKG
#HLD
-statin continued
#depression
-doxepin,escitalopram continued
#Essential hypertension - stable.
-nifedipine continued
#GERD
-maitnain on PPI
#Type II DM
-sliding scale
-CHO diet
History of breast cancer s/p lumpectomy
History of lung micronodules
History of T12 compression fracture
DVT ppx: Eliquis
Code: Full
Total time spent ; 52 mins
Anticipated Discharge: 24 - 48 hours
Subjective/Interval History
-
Date of Service: February 19, 2024
Resting comfortably in bed
On oxygen 3 L per nasal cannula saturating 96-97%
Objective Data
-
Labs:
Laboratory Results
02/19/24
05:29
Sodium 138
Potassium 3.8
Chloride 101
Carbon Dioxide 27
BUN 28 H
Creatinine 1.9 H
Glucose 82
Calcium 8.8
Vital Signs:
Vital Signs
Temp Pulse Resp BP Pulse Ox
97.6 F 90 18 146/61 94
02/19/24 07:50 02/19/24 07:50 02/19/24 07:50 02/19/24 07:50 02/19/24 07:50
Review of Systems
-
Respiratory: Reports Trouble Breathing
Cardiac: Reports No Symptoms
Abdomen/GI: Reports No Symptoms
Physical Exam
-
General: Comfortable and Cachectic
HEENT: Negative Oxygen
Respiratory: Clear to Auscultation
Cardiac: Regular Rhythm and S1/S2; Negative Murmur or Rub
GI: Soft, Nontender and Nondistended
Skin: Other (Right post knee erythema)
Neuro: Awake, Alert, Oriented, No Motor Deficits and Nonfocal/Grossly Intact
Psych: Calm
[2024-02-19 09:48] LABS: Glucose - Point of Care 75 mg/dl (70-99)
[2024-02-19] MEDS: LEXAPRO 10 MG PO (10:15)
[2024-02-19] MEDS: PROTONIX 40 MG PO (10:15)
[2024-02-19] MEDS: PROCARDIA XL (EXTENDED RELEASE) 30 MG PO (10:15)
[2024-02-19] MEDS: COREG 25 MG PO ×2 (10:15→21:41)
[2024-02-19] MEDS: LASIX 40 MG IV ×2 (10:16→16:33)
[2024-02-19] MEDS: ELIQUIS 2.5 MG PO ×2 (10:16→21:41)
[2024-02-19] MEDS: FIBERCON 625 MG PO ×2 (10:17→22:55)
[2024-02-19 13:01] LABS: Glucose - Point of Care 126 mg/dl (70-99)
[2024-02-19] MEDS: TYLENOL 650 MG PO (16:32)
[2024-02-19 16:56] LABS: Glucose - Point of Care 224 mg/dl (70-99)
[2024-02-19] MEDS: NOVOLOG FLEXPEN-LOW RESISTANCE 2 UNITS SC (18:04)
[2024-02-19] MEDS: LIPITOR 40 MG PO (21:41)
[2024-02-19] MEDS: FEOSOL 325 MG PO (21:41)
[2024-02-19] MEDS: KCL 10 MEQ PO (21:42)
[2024-02-19] MEDS: ANCEF 5 IV (21:42)
[2024-02-19] MEDS: MAGNESIUM OXIDE 500 MG PO (21:46)
[2024-02-19 22:32] LABS: Glucose - Point of Care 103 mg/dl (70-99)
--- NOTE | 2024-02-19 22:44 | PTCARENOTE ---
unable to verify VS prior to 190
[2024-02-19] MEDS: SINEQUAN 10 MG PO (22:55)
[2024-02-19] MEDS: LANTUS 0.03 UNITS SC (22:56)
--- NOTE | 2024-02-19 22:58 | PTCARENOTE ---
Pt was assessed. A&Ox4 Neuro system WNL. Pt on NC and sating 96%. Speech clear and easy. Lungs with slight crackles at the bases. Paced 100% on monitor. Pt knocked doxepin and fibercon on floor. Called Pharmacy to send replacement to [facility] where pt has
been moved. Held lantus for dosage clarification as pt was to receive 14units and pt was 103 on BGM. Dosethat was present here was tubed to 4[facility]. Pt left with PCT. Report tubed to floor. No s/s of distress assessed upon departure.
--- NOTE | 2024-02-20 00:56 | PTCARENOTE ---
Received pt from ED @ 9970. Pt arrived on 8L midflow, satting 90-95%. AAOx3, VSS. Pt ambulatory in room w RW. Oriented to room, call coronel and plan of care.
[2024-02-20 03:45] VITALS: BP 123/98
[2024-02-20] MEDS: ANCEF 5 IV ×2 (05:53→17:15)
[2024-02-20 05:59] VITALS: BMI 21.3
[2024-02-20 07:00] VITALS: BP 136/67
[2024-02-20 07:59] LABS: Glucose - Point of Care 78 mg/dl (70-99)
[2024-02-20] MEDS: NOVOLOG FLEXPEN-LOW RESISTANCE SC ×2 (08:36→16:50)
[2024-02-20] MEDS: ELIQUIS 2.5 MG PO ×2 (08:37→19:58)
[2024-02-20] MEDS: PROCARDIA XL (EXTENDED RELEASE) 30 MG PO (08:37)
[2024-02-20] MEDS: FIBERCON 625 MG PO ×2 (08:38→19:58)
[2024-02-20] MEDS: LEXAPRO 10 MG PO (08:38)
[2024-02-20] MEDS: LASIX 40 MG IV (08:38)
[2024-02-20] MEDS: PROTONIX 40 MG PO (08:38)
[2024-02-20] MEDS: COREG 25 MG PO (08:38)
--- NOTE | 2024-02-20 09:59 | CM ---
regional ehs manager reviewed patient's chart and met with patient and daughter at bedside. Patient lives with her spouse at [facility], patient is independent with adl's and uses a cane or walker with ambulation. Patient is currently
requiring 3 liters of oxygen and patient did not require oxygen prior to admission.
PCP: Dr. Gibbs
Pharmacy: [facility]
Plan; Patient to return to [facility], will need to watch and make sure patient does not require home oxygen. Patient declines visiting nurses at discharge.
[2024-02-20 10:10] LABS: Blood Urea Nitrogen 22 mg/dl (7-17); Calcium 8.9 mg/dl (8.4-10.2); Carbon Dioxide 29 mmol/L (22-30); Chloride 99 mmol/L (98-107); Estimated Creatinine Clearance 25 ml/min; Glucose 81 mg/dl (70-99); Potassium 3.4 mmol/L (3.5-5.1); Sodium 139 mmol/L (135-145); eGFR 41.57
[2024-02-20 11:38] VITALS: BP 116/47
[2024-02-20 11:56] LABS: Glucose - Point of Care 248 mg/dl (70-99)
[2024-02-20] MEDS: KLOR-CON 40 MEQ PO (13:14)
[2024-02-20] MEDS: NOVOLOG FLEXPEN-LOW RESISTANCE 2 UNITS SC (13:18)
--- NOTE | 2024-02-20 13:42 | PTCARENOTE ---
SaO2 96% on 2L NC. Trialed on room air; SaO2 to 89%. 2L reapplied.
--- NOTE | 2024-02-20 14:41 | W.PN.HOSP.TC ---
Today's Communication/Plan
-
continue abx
f/u cr and weight
on diuretics
Assessment / Plan
Assessment / Plan
# Right lower extremity cellulitis
-Lower extremity venous Doppler negative
-Patient to mechanical fall few days back and scabbed up wound on right lower extremity and right upper arm
-Nothing on exam to suggest deeper collection/purulent cellulitis
-History of diabetes, maintain on Ancef for now
# Acute on chronic midrange heart failure
Severe MR
Pulmonary hypertension
-BNP 11 200
-Chest x-ray with pleural effusion, cardiomegaly. Surprisingly on exam no crackles/no leg swelling
-Maintain on IV Lasix 40 mg twice daily
-Patient have lost significant weight and currently down to 49.5 kg
-Cardiology following and considering a repeat echocardiogram
# KRYSTAL on CKD 3B likely cardiorenal syndrome
# Hyponatremia - resolved
-Baseline creatinine 1.2-1.4, cr 1.9 this admit
-Cr improved to 1.3 today, monitor with IV diuretics
-Maintain on fluid restriction
# Permanent atrial fibrillation
History of PVI/AVJ ablation
Paroxysmal atrial flutter
- continue Eliquis
- continue Coreg
-obtain EKG
#HLD
-statin continued
#Depression
-doxepin,escitalopram continued
#Essential hypertension - stable.
-nifedipine continued
#GERD
-maintain on PPI
#Type II DM
-sliding scale
-CHO diet
History of breast cancer s/p lumpectomy
History of lung micronodules
History of T12 compression fracture
DVT ppx: Eliquis
Code: Full
Anticipated Discharge: 24 - 48 hours
Subjective/Interval History
-
Date of Service: February 20, 2024
continues to remain hypoxic
denies feeling dyspnic
no reported problems overnight
Objective Data
-
Labs:
Laboratory Results
02/20/24
08:32
Sodium 139
Potassium 3.4 L
Chloride 99
Carbon Dioxide 29
BUN 22 H
Creatinine 1.3 H
Glucose 81
Calcium 8.9
Vital Signs:
Vital Signs
Temp Pulse Resp BP Pulse Ox
97.5 F 63 18 116/47 95
02/20/24 11:38 02/20/24 11:38 02/20/24 11:38 02/20/24 11:38 02/20/24 11:38
I&O
02/19/24 02/20/24 02/21/24
06:59 06:59 06:59
Intake Total 240 / 240
Output Total 800 / 800
Balance -560 / -560
Review of Systems
-
Respiratory: Reports No Symptoms
Cardiac: Reports No Symptoms
Abdomen/GI: Reports No Symptoms
Physical Exam
-
General: Comfortable and Cachectic
HEENT: Oxygen (2L NC)
Respiratory: Clear to Auscultation
Cardiac: Regular Rhythm and S1/S2; Negative Murmur or Rub
GI: Soft, Nontender and Nondistended
Skin: Other (Right post knee erythema)
Neuro: Awake, Alert, Oriented, No Motor Deficits and Nonfocal/Grossly Intact
Psych: Calm
[2024-02-20 15:38] VITALS: BP 128/65
--- NOTE | 2024-02-20 16:28 | W.PN.CARDCBS ---
Addendum entered and electronically signed by Elia Akers MD 02/20/24 19:41:
78-year-old woman who presented to the ER with right lower extremity pain following a fall in January and found to have acute on chronic heart failure with with improved EF, 50-55% with at least moderate and probably severe mitral regurgitation and
moderate aortic regurgitation
PMH: CKD 3B, [employer] ICD/ELECTRICAL CONTINUITY TESTER, permanent atrial fibrillation with AVJ ablation in 2020 after PVI in 2018, prior flutter ablation, hypertension, diabetes, breast cancer status post lobectomy, osteo-, porosis with compression fractures
Outpatient furosemide 40 mg twice daily, nifedipine ER, potassium 20 mill equivalents daily 10 meq a day, atorvastatin 40 mg a day, Eliquis 5 mg twice daily
Allergy: Jardiance
128/65, pulse 60, afebrile, resp rate 18 , weight is 49.5 kg,, down less than 1 kg from admission, relatively frail, no acute distress, head neck exam unremarkable, some crackles in bases, fairly loud MR murmur, neck veins somewhat elevated, abdomen
benign, mild edema
Potassium 3.4, BUN and creatinine 22 and 1.3, creatinine had been 2 on February 17, baseline probably 1.4, proBNP was 11,200 February 17, had been 3902 in 2021, and as high as 33,300 in that timeframe
EKG: Atrial flutter with ventricular pacing
Impression: See below
Plan:
She remains with acute on chronic heart failure with improved EF. She has a history of allergy to Jardiance, uncertain whether we should consider a trial of Farxiga.
Recent KRYSTAL now somewhat improved, we should probably avoid spironolactone.
Agree with increase Lasix. I would also increase base rate of pacemaker, as she is pacemaker dependent with a heart rate of 60 and may do better with a heart rate of 70 or 75.
Based on exam, suspect that her mitral regurgitation is severe. Would consider transesophageal echo as an outpatient in the event that she is potentially a candidate for MitraClip.
Supplement potassium.
Original Note:
Today's Communication / Plan
-
Increased Lasix to 60 mg IV BID
Impression / Plan
-
PCP: Clay Barahona
CDY: Erick Gilliland
Impression:
Admitted with RLE pain and CHF 02/18/24
KRYSTAL on CKD 3b
Acute HFrEF
CM EF 45% by echo 08/30/23
Severe MR
CM EF was 25-30% by echo 2020, improved to 45% by echo 08/30/23
Pulmonary hypertension
s/p Medtronic ELECTRICAL CONTINUITY TESTER-D
Permanent Afib
s/p PVI 06/2018
s/p AVJ ablation 12/05/20
Paroxysmal atrial Flutter
s/p CTI RFA 12/2017
Chronic Eliquis OAC
HTN
DM
Breast cancer s/p lumpectomy
H/o lung micronodules
H/o T12 compression fracture
Echo 10/20/20: Moderately to severely reduced EF 25-30% with global hypokinesis, stage III diastolic dysfunction, mildly dilated RA, moderate to severe MR, mild aortic regurgitation
Echo 08/30/2023: EF 45 to 50%, moderate to severe MR, no MS, moderate aortic insufficiency, moderate to severe TR with severe PHTN and PAP 65 to 70 mmHg
Echo 02/19/24: EF 50-55%, stage III diasotlic dysfunction, at least mod MR, mod ecc AR, sev TR with PAP 45 mmHg
Plan:
-Weight is down about 1 lb and patient has not had improvement in bloating despite Lasix 40 mg IV BID. Patient was taking Lasix 40 mg PO BID prior to admission, will increase Lasix to 60 mg IV BID.
-EF stable and a bit improved compared to 08/2023. EF was previously as low as 25% in 2020
-Continues with at least mod MR by echo. It is not clear if patient has ever been considered for mitral valve intervention.
-Outpatient dose of Coreg 25 mg twice daily has been continued
-Cre improved to 1.3 with IV diuresis.
-Patient has a history of dyspepsia related to RICK inhibitor. Will try adding losartan 25 mg daily in AM
-Patient has a history of allergic reaction to Jardiance. Reaction unknown.
-Patient with known permanent A-fib/flutter and is status post AVJ ablation in 2020. Heart rates controlled on ECG and telemetry review.
-Outpatient dose of Eliquis 5 mg BID was lowered to 2.5 mg BID this admission. Cre 1.9, age 78, wt 49.6 kg
HPI: Patient came to [facility] ER yesterday with RLE pain and was admitted with acute HF and cardiology has been consulted. Patient was seen in the cardiology office 08/01/2023 and at that time appeared to be in acute HF and was started on
Lasix 40 mg twice daily. Patient called the office and also sent web encounters describing overall improvement in edema in the last couple of months. Patient says that over the holiday she was at her daughter's home and rolled out of her
guest room bed and landed on the floor injuring her RLE including a deeper abrasion and pain. Patient felt as though she was improving, but then yesterday the pain became worse and so she came to [facility] ER. LE U/S showed no evidence
of DVT. CXR was read as a small right pleural effusion and proBNP was elevated at 11,200. Patient complains of abdominal bloating, but denies any orthopnea. She also notes some GRAHAM, but again this was not her primary complaint coming to the ER.
Patient was given Lasix 40 mg IV x 1 in the ER last night reports increased urine output, but no appreciable difference in abdominal bloating.
Progress Note - Tonnage Compilation Clerk
Subjective
Date of Service: February 20, 2024
She feels like she is still bloated
Objective
Labs:
02/18/24 16:04
02/20/24 08:32
Labs
Hgb 13.3 g/dL (12.0-16.0) 02/18/24 16:04
Hct 40.4 % (37.0-47.0) 02/18/24 16:04
Plt Count 233 10^3/uL (130-400) 02/18/24 16:04
Sodium 139 mmol/L (135-145) 02/20/24 08:32
Potassium 3.4 mmol/L (3.5-5.1) L 02/20/24 08:32
BUN 22 mg/dl (7-17) H 02/20/24 08:32
Creatinine 1.3 mg/dL (0.6-1.0) H 02/20/24 08:32
Glucose 81 mg/dl (70-99) 02/20/24 08:32
Troponins
02/18/24
18:54
Troponin I < 0.012
Vital Signs and I&O:
Vital Signs
Temp Pulse Resp BP Pulse Ox
97.5 F 60 18 128/65 95
02/20/24 15:38 02/20/24 15:38 02/20/24 15:38 02/20/24 15:38 02/20/24 15:38
Vital Signs
Temp Pulse Resp BP Pulse Ox
97.5 F 60 18 128/65 95
02/20/24 15:38 02/20/24 15:38 02/20/24 15:38 02/20/24 15:38 02/20/24 15:38
Intake & Output
02/18/24 02/19/24 02/20/24 02/21/24
06:59 06:59 06:59 06:59
Intake Total 240 / 240
Output Total 800 / 800
Balance -560 / -560
Physical Exam
Physical Exam
GEN: NAD. AAOx3
HEENT: EOMI, MMM
LUNGS: 3 L NC. No audible wheeze
CV: Afib on tele
ABD: ND
EXT: Right popliteal fossa ecchymosis and firmness. No edema B/L
NEURO: Gross non-focal
SKIN: No rash
[2024-02-20 16:45] LABS: Glucose - Point of Care 105 mg/dl (70-99)
[2024-02-20] MEDS: LASIX IV (16:49)
[2024-02-20] MEDS: FEOSOL 325 MG PO (17:07)
[2024-02-20] MEDS: LIPITOR 40 MG PO (17:07)
[2024-02-20] MEDS: MAGNESIUM OXIDE 500 MG PO (17:07)
[2024-02-20] MEDS: LASIX 60 MG IV (17:13)
[2024-02-20] MEDS: KCL 10 MEQ PO (17:15)
[2024-02-20] MEDS: SINEQUAN 10 MG PO (17:16)
[2024-02-20 19:20] VITALS: BP 133/55
[2024-02-20] MEDS: COREG 12.5 MG PO (19:59)
[2024-02-20 21:33] LABS: Glucose - Point of Care 174 mg/dl (70-99)
[2024-02-20] MEDS: KCL 20 MEQ PO (21:33)
[2024-02-20] MEDS: LANTUS 0.03 UNITS SC (21:34)
[2024-02-20 23:45] VITALS: BP 138/62
[2024-02-21 03:30] VITALS: BP 116/58
[2024-02-21 05:52] VITALS: BMI 21.7
[2024-02-21] MEDS: ANCEF 5 IV (06:00)
[2024-02-21 07:40] VITALS: BP 135/59
--- NOTE | 2024-02-21 07:49 | PN.CDI ---
CDI
- -
CDI:
Physician Documentation Request
Admit Date: 02/18/24 21:47
Dear Doctor Kem,
Please review the following and provide your response in the progress notes.
Clinical Indicators:
- 02/19 Cardiology 'acute on chronic heart failure with with improved EF'
- 02/19 PN 'Acute on chronic midrange heart failure'
- 02/18 Echo EF 50-55%
Please provide further specificity regarding the most likely type of CHF you are evaluating, treating or monitoring.
Acute on chronic HFimpEF
Acute on chronic HFpEF
Other (please specify)
Use of terms such as suspected, likely, concern for, or probable (associated with a specific diagnosis that is being evaluated, monitored, or treated as if it exists) are acceptable and can be coded in the inpatient setting, when documented at the
time of discharge.
Thank you,
Madelyn Payan RN
CDI Specialist
Please use your independent medical judgment in providing your response.
--- NOTE | 2024-02-21 07:54 | PN.CDI ---
CDI
- -
CDI:
Physician Documentation Request
Admit Date: 02/18/24 21:47
Dear Doctor Kem,
Please review the following and provide your response in the progress notes.
Clinical Indicators:
- Patient admit for cellulitis and acute on chronic heart failure with severe mitral regurgitation
- 02/19 RN note 'Received pt from ED...arrived on 8L midflow, satting 90-95%'
- 02/19 Documented VS 87% on room air, 91% on 5L, 94-97% on 8L midflow
- 02/19 weaned to room air, SpO2 93%
Please clarify which of the following accurately represents the patient's respiratory status:
Acute hypoxic respiratory failure, resolved
Hypoxia
Other (please specify)
Additional information for Respiratory Failure:
Recognized criteria for Respiratory Failure (Source: [facility] Hospitalist Dec 2012)
ABGs: (1 or more) Symptoms Please indicate type if known
1. p)2 <60 or RA SPO2 <91% on RA 1. Tachypnea, SOB, dyspnea Hypoxic
2. pCO2 50 and pH <7.35 2. Use of accessory muscles Hypercapnic
3. pO2 decrease of pCO2 increase by 3. Pallor or cyanosis Hypoxic and Hypercapnic
10 mmHg from baseline if known 4. Anxiety or restlessness Unable to determine
5. Unable to speak in full sentences
Supplemental O2 of > 40% (5LPM) Intubation is not required
Use of terms such as suspected, likely, concern for, or probable (associated with a specific diagnosis that is being evaluated, monitored, or treated as if it exists) are acceptable and can be coded in the inpatient setting, when documented at the
time of discharge.
Thank you,
Madelyn Payan RN
CDI Specialist
Please use your independent medical judgment in providing your response.
[2024-02-21 08:13] LABS: Glucose - Point of Care 105 mg/dl (70-99)
[2024-02-21] MEDS: NOVOLOG FLEXPEN-LOW RESISTANCE SC ×2 (09:05→13:51)
[2024-02-21] MEDS: FIBERCON PO (09:12)
[2024-02-21 09:17] LABS: Blood Urea Nitrogen 21 mg/dl (7-17); Calcium 8.8 mg/dl (8.4-10.2); Carbon Dioxide 27 mmol/L (22-30); Chloride 101 mmol/L (98-107); Estimated Creatinine Clearance 21 ml/min; Glucose 87 mg/dl (70-99); Potassium 4.4 mmol/L (3.5-5.1); Sodium 140 mmol/L (135-145); eGFR 35.01
[2024-02-21] MEDS: COREG 12.5 MG PO (09:21)
[2024-02-21] MEDS: LEXAPRO 10 MG PO (09:21)
[2024-02-21] MEDS: ELIQUIS 2.5 MG PO (09:21)
[2024-02-21] MEDS: PROTONIX 40 MG PO (09:21)
[2024-02-21] MEDS: LASIX 60 MG IV (09:23)
--- NOTE | 2024-02-21 10:58 | W.PN.HOSP.TC ---
Addendum entered and electronically signed by Drake Brownlee MD 02/21/24 15:46:
Adjust diagnosis;
Acute hypoxic respiratory failure, resolved
Acute on chronic diastolic HF
Original Note:
Today's Communication/Plan
-
d/c home if amb o2 appropiate
Assessment / Plan
Assessment / Plan
# Right lower extremity cellulitis
-Lower extremity venous Doppler negative
-Patient to mechanical fall few days back and scabbed up wound on right lower extremity and right upper arm
-Nothing on exam to suggest deeper collection/purulent cellulitis
-on ancef for hospital stay, change it to oral kelfex at discharge.
# Acute on chronic midrange heart failure
Pulmonary hypertension
Acute hypoxic resp insuff - resolved
-BNP 11 200
-Chest x-ray with pleural effusion, cardiomegaly. Surprisingly on exam no crackles/no leg swelling
-Repeat TTE showing EF 50-55% and stage III diastolic dysfunction. Mod MR/AR
-of of o2 today. check amb o2 and could be discharged if amb o2 > 88%
# KRYSTAL on CKD 3B likely cardiorenal syndrome
# Hyponatremia - resolved
-Baseline creatinine 1.2-1.4, cr 1.9 this admit
-Cr trended down and 1.5 today
-Maintain on fluid restriction
# Permanent atrial fibrillation
History of PVI/AVJ ablation
Paroxysmal atrial flutter
- continue Coreg
- Dose of Eliquis decreased as age 78, weight < 60kg, Cr fluctuating 1.5 range.
#HLD
-statin continued
#Depression
-doxepin,escitalopram continued
#Essential hypertension - stable.
-nifedipine continued
#GERD
-maintain on PPI
#Type II DM
-sliding scale
-CHO diet
History of breast cancer s/p lumpectomy
History of lung micronodules
History of T12 compression fracture
DVT ppx: Eliquis
Code: Full
More than 30 minutes spent in discharge including
Final examination of the patient
Summarizing hospital stay
Instructions for continuing care to all relevant caregivers
Preparation of discharge records, prescriptions, and referral forms
Total time spent (in minutes): 38 mins
Anticipated Discharge: Today
Subjective/Interval History
-
Date of Service: February 21, 2024
feeling better
off of o2
no issues in night
Objective Data
-
Labs:
Laboratory Results
02/21/24
07:32
Sodium 140
Potassium 4.4 D
Chloride 101
Carbon Dioxide 27
BUN 21 H
Creatinine 1.5 H
Glucose 87
Calcium 8.8
Vital Signs:
Vital Signs
Temp Pulse Resp BP Pulse Ox
98.3 F 61 20 135/59 93
02/21/24 07:40 02/21/24 07:40 02/21/24 07:40 02/21/24 07:40 02/21/24 07:40
I&O
02/20/24 02/21/24 02/22/24
06:59 06:59 06:59
Intake Total 240 / 240 600 / 600
Output Total 800 / 800
Balance -560 / -560 600 / 600
Review of Systems
-
Respiratory: Reports No Symptoms
Cardiac: Reports No Symptoms
Abdomen/GI: Reports No Symptoms
Physical Exam
-
General: Comfortable and Cachectic
HEENT: Oxygen (2L NC)
Respiratory: Clear to Auscultation
Cardiac: Regular Rhythm and S1/S2; Negative Murmur or Rub
GI: Soft, Nontender and Nondistended
Skin: Other (Right post knee erythema)
Neuro: Awake, Alert, Oriented, No Motor Deficits and Nonfocal/Grossly Intact
Psych: Calm
--- NOTE | 2024-02-21 11:11 | CM ---
CM following re: discharge planning.
Reviewed pt's chart, met with pt and pt's daughter Lisa at bedside.
Discharge order noted. Both pt and her daughter are aware, expressed their agreement with discharge and daughter stated she will transport pt back to her living arrangements at [facility]. IMM reviewed, placed on chart, pt has a copy.
PT and OT evaluations noted - pt has no skilled needs.
D/C plan: home at [facility] independent apartment. Daughter to transport.
[2024-02-21 11:16] VITALS: BP 121/51
[2024-02-21 11:35] LABS: Glucose - Point of Care 95 mg/dl (70-99)
--- NOTE | 2024-02-21 12:11 | W.PN.UPDATE ---
Update Note
Progress Note Update
base rate of PPM increased to 70BPM by device rep.
[2024-02-21 12:25] VITALS: O2SAT 96; O2SAT 99
[2024-02-21] MEDS: PROCARDIA XL (EXTENDED RELEASE) 30 MG PO (12:29)
--- NOTE | 2024-02-22 15:12 | W.DCSUMMARY ---
Discharge Summary
Discharge Data
Date of Admission: 02/18/24
Date of Discharge: 02/21/24
-
Pending Results: No
Hospital Course
Discharging Physician : Dr Drake Brownlee
Disposition : Home
Primary care physician : Dr Clay Gibbs
Principal Discharge diagnosis :
Acute hypoxic respiratory failure
Acute on chronic�congestive heart failure
Right lower extremity cellulitis
Acute kidney injury on chronic kidney disease stage IIIb
Chronic Discharge diagnosis :
Permanent atrial fibrillation
history of pulmonary vein isolation/atrioventricular junction ablation
Hyperlipidemia
Depression
Essential hypertension
Gastroesophageal reflux disease
Type 2 diabetes mellitus
History of breast cancer status postlumpectomy
History of lung micronodule
History of thoracic 12 compression fracture
Hospital Course :
Patient is a 78-year-old female with no mentioned past medical history came to ER for having new right lower extremity redness after patient had minor fall and suffered a minor injury to the right popliteal area. Patient also was having some
labored breathing in ER was noted to be hypoxic. On clinical exam patient was diagnosed to have cellulitis in right lower extremity and was started on empiric antibiotic. Clinically no signs suggestive of deeper collection or complicating factors
of cellulitis. Patient also was felt to having volume overload and heart failure exacerbation and was started on empiric IV diuretics. Repeat echocardiogram showing preserved ejection fraction of 50 to 55% with stage III diastolic dysfunction.
over next 48 hours patient improved slowly with patient was able to be weaned off of oxygen. Cardiology was following along during the hospital stay. Patient also had some renal dysfunction which improved with IV diuretics. Patient cellulitis
resolved and patient was discharged home with follow-up with family physician cardiology in office.
Important imaging findings :
None
Procedure findings :
None
Discharge Plan
-
Patient Disposition: Home (Routine Discharge)
Discharge Diagnosis/Procedures: Right leg cellulitis, Acute hypoxic resp insufficiency, HF exacerbation
Condition: Fair
Diet: Low Sodium
Activity: As tolerated
Driving Restrictions: As prior to admission
Bathing Restrictions: OK to Shower
Instructions: *[facility] Heart Failure Instructions
Referrals:
Clay Gibbs DO [Family Provider] - in one week
Additional Discharge Medication Instructions: Dose of Eliquis decreased to 2.5mg BID
Prescriptions:
New
cephalexin 500 mg capsule
500 mg PO Q8H 3 Days Qty: 9 0RF
Eliquis 2.5 mg tablet
2.5 mg PO BID Qty: 60 2RF
Continued
ferrous sulfate [FeroSul] 325 MG tablet
325 mg PO QPM
atorvastatin 40 MG tablet
40 mg PO QPM
escitalopram oxalate 10 MG tablet
10 mg PO DAILY
carvedilol [Coreg] 25 mg Tablet
25 mg PO BID
potassium chloride 10 mEq Capsule, Extended Release
10 meq PO QPM
doxepin 10 mg Capsule
10 mg PO QPM
calcium polycarbophil [FiberCon] 625 mg Tablet
625 mg PO BID
furosemide 40 MG tablet
40 mg PO BID@0800,1600
nifedipine 30 mg Tablet Extended Release
30 mg PO DAILY Qty: 30 0RF
cyanocobalamin (vitamin B-12) 1,000 mcg Tablet
1,000 mcg PO QPM
pantoprazole [Protonix] 40 mg Tablet,Delayed Release (Dr/Ec)
40 mg PO DAILY
insulin lispro [Humalog KwikPen Insulin] 100 unit/mL Insulin Pen
0 sliding scale dose SC BID
insulin glargine [Basaglar KwikPen U-100 Insulin] 100 unit/mL (3 mL) Insulin Pen
6 unit SC HS
magnesium oxide 400 mg magnesium Tablet
400 mg PO QPM
cetirizine 10 mg Tablet
10 mg PO DAILY
Discontinued
Eliquis 5 mg Tablet
5 mg PO BID
Discharge Orders:
Discharge Patient (As Directed); Ordered 02/21/24
Ordered By: Drake Brownlee
Discharge Date and Time
Discharge Date/Time: 02/21/24 14:55
Print Language: KAZAKH
== END 2024-02-21 14:55 | disposition home or self-care (01) | DRG 602 ==
LOC: 4 WEST ACU 21:47
PROVIDERS: Physician Assistant; Registered Nurse; ADMITTING PHYSICIAN Internal Medicine; ATTENDING PHYSICIAN Hospitalist; EMERGENCY PHYSICIAN Emergency Medicine; FAMILY PHYSICIAN Internal Medicine; OTHER PHYSICIAN Internal Medicine Cardiovascular Disease
DX: L03.115 Cellulitis of right lower limb (principal); I50.33 Acute on chronic diastolic (congestive) heart failure; J96.01 Acute respiratory failure with hypoxia; I13.0 Hypertensive heart and chronic kidney disease with heart failure and stage 1 through stage 4 chronic kidney disease, or unspecified chronic kidney disease; N17.9 Acute kidney failure, unspecified; E87.1 Hypo-osmolality and hyponatremia; I48.21 Permanent atrial fibrillation; I48.3 Typical atrial flutter; Z79.01 Long term (current) use of anticoagulants; N18.32 Chronic kidney disease, stage 3b; E11.22 Type 2 diabetes mellitus with diabetic chronic kidney disease; F32.A Depression, unspecified; K21.9 Gastro-esophageal reflux disease without esophagitis; E11.36 Type 2 diabetes mellitus with diabetic cataract; E78.00 Pure hypercholesterolemia, unspecified
CPT/HCPCS: 71046; 80048; 80053; 80061; 82962; 83036; 83735; 83880; 84443; 84484; 85025; 87070; 93005; 93306; 93971

== ENCOUNTER 2024-05-12 22:58 | Emergency (ER) | payer MEDICARE, SELFPAY ==
[2024-05-12 23:01] VITALS: BP 160/81
--- NOTE | 2024-05-12 23:04 | ED.GENMED ---
Addendum entered and electronically signed by Noris Bland PA-C 05/14/24 20:00:
Addendum:
Left knee: 5 cm skin tear repaired with steristrips and dermabond
Right knee: 6 cm skin tear with well vascularized flap repaired with steristrips and dermabond bleeding controlled
Original Note:
History of Present Illness
General
Chief Complaint: Skin Surface Trauma
Source: patient
Exam Limitations: none
Time Seen by Provider: 05/12/24 22:59
Nursing documentation reviewed up to this point in time: agreed with
History of Present Illness
History of Present Illness:
This is a 79-year-old female with a past medical history of A-fib on Eliquis, IBS, CHF, diabetes on insulin, asthma who presents emergency department today with concerns of a fall occurring around 3 minutes ago. Patient reports that she was getting
up in the night to use the bathroom when she tripped on her blanket on the floor and fell forward, scrapping her knees on the floor and following with her arms outstretched. Patient states that she did not hit her head or injure her neck during
this event. Patient denies any dizziness or headaches. Patient denies any loss of consciousness. Patient denies any chest pain or shortness of breath, denies any abdominal pain. She lives at home with her and reports that her had
his hearing aids out and she could not wake him. She had trouble getting up off the floor and so she called 911. After EMS helped her up, she was able to ambulate without any difficulties. She notes some pain in her knees but denies any pain in
her wrists. She is up to date on her tetanus vaccine.
Past History
Past History
ED Past Medical History: Arrthythmia, Cancer (skin cancer), CHF, HTN, NIDDM and Other (Atrial fibrillation and atrial flutter, diabetes, hypertension, nonischemic cardiomyopathy, breast cancer, diverticulitis)
ED Past Surgical History: Cardiac (Ablation, cardioversion 01/2018 ischemic, defibrillator)
Patient has exhibited threatening behavior?: No
PSI?: No
Social History
Tobacco: Non-smoker
Alcohol: None
Drug: None
Personal:
Living: with family
Employment: Retired
Family History
Family History: Other (Hypertension, cirrhosis)
Review of Systems
Review of Systems
All Other Systems: ROS reviewed and negative except as documented in HPI and ROS
Phy Exam
Physical Exam
Physical Exam:
General: Patient is well appearing and in no acute distress; non-toxic
Skin: 2 skin tears overlying the knees bilaterally, no active bleeding, ecchymosis noted to the anterior aspect of the left wrist
Head: Normocephalic, atraumatic
Eyes: Sclera non-icteric. EOMs intact.
Neck: No tenderness palpation of the cervical spine
Cardiac: Regular rate; no tenderness to palpation to the external chest wall
Peripheral Vascular: No lower extremity swelling or edema
Pulm: Normal respiratory effort, no wheezes, rales, rhonchi
Abdomen: No abdominal tenderness to palpation
Musculoskeletal: No tenderness to palpation of the bilateral wrists, mild pain with flexion of both knees, no pain with flexion/extension, internal/external rotation of both hips
Neuro: CN II-XII intact, no focal neurologic deficits.
Psychiatric: Appropriate mood and affect.
Course
Orders/Labs/Results
Orders:
Orders
05/12/24 23:11
CR Knee - Left 4 Or More View* Urgent
Comment:
Reason For Exam: knee pain
CR Knee- Right 4 Or More View* Urgent
Comment:
Reason For Exam: knee pain
05/12/24 23:14
CT Head W/o Iv Contrast Urgent
Comment:
Reason For Exam: fall on eliquis
Vital Signs
Initial and Last Documented VS:
Initial Vital Signs
Temp Pulse Resp BP Pulse Ox
98.0 F 71 18 160/81 97
05/12/24 23:01 05/12/24 23:01 05/12/24 23:01 05/12/24 23:01 05/12/24 23:01
Last Documented Vital Signs
Temp Pulse Resp BP Pulse Ox
98.0 F 71 18 160/81 97
05/12/24 23:01 05/12/24 23:01 05/12/24 23:01 05/12/24 23:01 05/12/24 23:01
MDM/Problems Addressed
Differential Diagnosis Includes:
Differentials include tibial plateau fracture, skin tear, subdural hematoma, contusion
MDM/Problems Addressed:
79-year-old female presents emergency department today with concerns of a trip and fall fall waking up to use the bathroom. Patient did not lose consciousness. She not hit her head. She has no neck pain. She has have skin tears to her knees
bilaterally. There is no evidence of acute fractures or dislocations on her knee x-rays. Her head CT was negative for any acute intracranial bleeding. Patient's skin tears were repaired with Dermabond and Steri-Strips. Patient ambulated without
any difficulties with one of our ER technicians and demonstrated a steady gait. Patient stable for discharge.
*Pulse Oximetry
Patient hypoxic: no
*Critical Care Note
Total Time (30-74mins, 75-104mins- exclusive of procedures): Not Applicable
Data Reviewed
Review of Other/Old Records Reveals: Records (Reviewed discharge summary from 02/22/2024 patient seen for acute hypoxic respiratory failure secondary to heart failure)
Source: patient and records
Patient Management
Escalation/DeEscalation of care consider admission/obs:
admit not indicated, patient stable for discharge
ED Attending Note
-
Portions of this chart may have been created with voice recognition software.� Occasional wrong word or��sound alike� substitutions may have occurred due to the inherent limitations of voice recognition software.
Discharge Plan
Departure
Patient Disposition: Home (Routine Discharge)
Date of Disposition: 04/02/25
Time of Disposition: 00:24
Patient with high blood pressure during this ER visit?: Yes
Condition: Good
Discharge Problem:
Fall, Tear of skin of multiple sites of lower extremity
Instructions: Wound Care ([place]), [facility], BLOOD PRESSURE
Prescriptions:
No Action
ferrous sulfate [FeroSul] 325 MG tablet
325 mg PO QPM
atorvastatin 40 MG tablet
40 mg PO QPM
escitalopram oxalate 10 MG tablet
10 mg PO DAILY
carvedilol [Coreg] 25 mg Tablet
25 mg PO BID
potassium chloride 10 mEq Capsule, Extended Release
10 meq PO QPM
doxepin 10 mg Capsule
10 mg PO QPM
calcium polycarbophil [FiberCon] 625 mg Tablet
625 mg PO BID
furosemide 40 MG tablet
40 mg PO BID@0800,1600
nifedipine 30 mg Tablet Extended Release
30 mg PO DAILY Qty: 30 0RF
cyanocobalamin (vitamin B-12) 1,000 mcg Tablet
1,000 mcg PO QPM
pantoprazole [Protonix] 40 mg Tablet,Delayed Release (Dr/Ec)
40 mg PO DAILY
insulin lispro [Humalog KwikPen Insulin] 100 unit/mL Insulin Pen
0 sliding scale dose SC BID
insulin glargine [Basaglar KwikPen U-100 Insulin] 100 unit/mL (3 mL) Insulin Pen
6 unit SC HS
magnesium oxide 400 mg magnesium Tablet
400 mg PO QPM
cetirizine 10 mg Tablet
10 mg PO DAILY
cephalexin 500 mg capsule
500 mg PO Q8H 3 Days Qty: 9 0RF
Eliquis 2.5 mg tablet
2.5 mg PO BID Qty: 60 2RF
Referrals:
Clay Gibbs DO [Family Provider] -
Activity Restrictions/Additional Instructions:
Your x-rays did not show any evidence of fracture. Your CT scan of the head was normal and did not show any evidence of acute intracranial abnormality.
Regards to your skin tears, they were repaired with Steri-Strips and Dermabond. You can change the dressing once daily with nonadherent pads and Kerlix wrap. Please keep the wound dry for 24 hours. After 24 hours, you can rinse the wound with
mild soap and water, please do not remove the Steri-Strips, these will peel off on its own as the wound heals. Please do not use hydrogen peroxide or alcohol on the wound as this will dissolve the glue.
PLEASE RETURN EMERGENCY DEPARTMENT SHOULD YOU DEVELOP PURULENT DRAINAGE FROM YOUR WOUNDS, FEVERS OR CHILLS, REDNESS AROUND THE WOUNDS, INCREASING PAIN, INABILITY AMBULATE, HEADACHE, INTRACTABLE NAUSEA OR VOMITING, CHEST PAIN, SHORTNESS OF BREATH,
WEAKNESS ONE-SIDED SYSTOLIC OR ANY OTHER SIGNS OR SYMPTOMS WORRISOME TO YOU.
Interventions
Interventions:
*Risk Screen - Suicide Last Done: 05/12/24 23:01
*General Assessment Last Done: 05/12/24 23:01
*Neglect/Abuse Screening Last Done: 05/12/24 23:01
*ED- Fall Risk Assessment Last Done: 05/12/24 23:01
*ED COVID-19 Vaccine History Last Done: 05/12/24 23:01
*Nursing Disposition Last Done: 05/13/24 00:46
ED-Skin Assessment Last Done: 05/12/24 23:15
Discharge Date and Time
Discharge Date/Time: 05/13/24 00:48
Print Language: ESTONIAN
== END 2024-05-13 00:48 | disposition home or self-care (01) ==
LOC: EMR 22:58
PROVIDERS: EMERGENCY PHYSICIAN Emergency Medicine; FAMILY PHYSICIAN Internal Medicine
DX: S81.012A Laceration without foreign body, left knee, initial encounter (principal); S81.011A Laceration without foreign body, right knee, initial encounter; W01.0XXA Fall on same level from slipping, tripping and stumbling without subsequent striking against object, initial encounter; I48.91 Unspecified atrial fibrillation; I11.0 Hypertensive heart disease with heart failure; I50.9 Heart failure, unspecified; E11.9 Type 2 diabetes mellitus without complications; Z79.01 Long term (current) use of anticoagulants; J45.909 Unspecified asthma, uncomplicated
CPT/HCPCS: 99285; 12004; 70450; 73564

== ENCOUNTER 2024-05-28 09:03 | Day surgery (SDC) | payer MEDICARE, SELFPAY ==
[2024-05-28 10:16] LABS: Glucose - Point of Care 106 mg/dl (70-99)
== END 2024-05-28 11:15 | disposition home or self-care (01) ==
LOC: CATH 09:03
PROVIDERS: ATTENDING PHYSICIAN Internal Medicine Cardiovascular Disease; FAMILY PHYSICIAN Internal Medicine; OTHER PHYSICIAN Internal Medicine Cardiovascular Disease
DX: I08.3 Combined rheumatic disorders of mitral, aortic and tricuspid valves (principal); Q21.12 Patent foramen ovale; I31.39 Other pericardial effusion (noninflammatory); I11.0 Hypertensive heart disease with heart failure; I50.22 Chronic systolic (congestive) heart failure; Z95.810 Presence of automatic (implantable) cardiac defibrillator; E11.9 Type 2 diabetes mellitus without complications; I08.8 Other rheumatic multiple valve diseases
CPT/HCPCS: 93312; 93320; 93325; 82962

== ENCOUNTER → 2024-07-17 11:49 | Outpatient (REF) | payer MEDICARE, SELFPAY ==
[2024-07-17 13:02] LABS: % Basophils 0.6 % (0-2); % Eosinophils 2.6 % (0-6); % Immature Granulocytes 0.3 % (0-0.5); % Lymphocytes 7.9 % (20.5-51.1); % Monocytes 12.4 % (1.7-9.3); % Neutrophils 76.2 % (42.2-75.2); Absolute Basophils 0.1 10^3/uL (0-0.2); Absolute Eosinophils 0.2 10^3/uL (0-0.7); Absolute Lymphocytes 0.6 10^3/uL (1.2-3.4); Absolute Neutrophils 6.1 10^3/uL (1.4-6.5); Hematocrit 41.5 % (37.0-47.0); Hemoglobin 13.6 g/dL (12.0-16.0); Mean Corp Hgb Conc. 32.8 g/dL (33.0-37.0); Mean Corpuscular Hgb 30.8 pg (27.0-31.0); Mean Corpuscular Volume 94.1 fL (81.0-99.0); Mean Platelet Volume 10.7 fL (7.4-10.4); Nucleated Red Blood Cells % 0 %; Platelet Count 261 10^3/uL (130-400); Red Blood Cell Count 4.41 10^6/uL (4.20-5.40); Red Cell Dist. Width 14.2 % (11.5-14.5)
[2024-07-17 13:37] LABS: Erythrocyte Sed Rate 50 mm/hour (0-20)
[2024-07-17 14:21] LABS: ALT (SGPT) 25 U/L (0-35); AST (SGOT) 33 U/L (14-36); Alkaline Phosphatase 273 U/L (38-126); Blood Urea Nitrogen 58 mg/dl (7-17); Calcium 9.6 mg/dl (8.4-10.2); Carbon Dioxide 25 mmol/L (22-30); Chloride 105 mmol/L (98-107); Glucose 76 mg/dl (70-99); Sodium 137 mmol/L (135-145); Total Bilirubin 0.8 mg/dl (0.2-1.3); Total Protein 8.1 g/dl (6.3-8.2); eGFR 24.64
[2024-07-17 14:29] LABS: C-Reactive Protein < 5.00 mg/L (0.0-10.00)
[2024-07-17 14:34] LABS: Potassium 6.1 mmol/L (3.5-5.1)
== END ==
LOC: RCS 11:49
PROVIDERS: ATTENDING PHYSICIAN Nurse Practitioner Family; FAMILY PHYSICIAN Internal Medicine
DX: R59.9 Enlarged lymph nodes, unspecified (principal); E87.5 Hyperkalemia
CPT/HCPCS: 36415; 80053; 85025; 85652; 86140; 93005

== ENCOUNTER 2024-07-17 19:57 | Emergency (ER) | payer MEDICARE, SELFPAY ==
[2024-07-17 20:00] VITALS: BP 152/81
--- NOTE | 2024-07-17 20:34 | ED.GENMED ---
History of Present Illness
General
Chief Complaint: Abnormal Lab Value
Time Seen by Provider: 07/17/24 20:22
History of Present Illness
History of Present Illness:
79-year-old female history of atrial fibrillation on Eliquis, CHF on Lasix, hypertension presenting with abnormal lab values. Patient states that she is having right side neck pain and went to her primary care doctor who did blood work that showed
a potassium of 6.1. Patient states she feels tired but no other symptoms. Patient denies any falls or trauma. Patient denies numbness, weakness, tingling, visual changes or headaches.
Past History
Past History
ED Past Medical History: Arrthythmia, Cancer (skin cancer), CHF, HTN, NIDDM and Other (Atrial fibrillation and atrial flutter, diabetes, hypertension, nonischemic cardiomyopathy, breast cancer, diverticulitis)
ED Past Surgical History: Cardiac (Ablation, cardioversion 01/2018 ischemic, defibrillator)
Patient has exhibited threatening behavior?: No
PSI?: No
Social History
Tobacco: Non-smoker
Alcohol: None
Drug: None
Personal:
Living: with family
Employment: Retired
Family History
Family History: Other (Hypertension, cirrhosis)
Phy Exam
Physical Exam
Physical Exam:
General: Alert, no acute distress
Head: NCAT
Eyes: clear conjunctiva
Neck: supple. Right lateral tenderness to palpation with no overlying erythema or swelling. No carotid bruits bilaterally. Full range of motion neck
Cardiac: regular rate and rhythm, no murmur
Lungs: clear to auscultation bilaterally. No wheezes, rales, or rhonchi. Speaking full unlabored sentences. No respiratory distress.
Abdomen: soft, nondistended nontender. No rebound or guarding.
MSK: no lower extremity edema bilaterally. No deformity
Skin: warm, dry
Neuro: Alert and oriented x3. no focal deficits
Course
Orders/Labs/Results
Orders:
Orders
07/17/24 20:04
Electrocardiogram (*1) Urgent
Reason for Study: Other
Other Reason for Exam: reported hyperkalemia
EKG- Treatment ONCE
07/17/24 20:59
Complete Blood Count/With Diff Urgent
Comprehensive Metabolic Panel Urgent
Abnormal Lab Results
07/17/24
20:59
MCH 31.9 H pg
(27.0-31.0)
MPV 10.7 H fL
(7.4-10.4)
Absolute Lymphs (auto) 0.7 L 10^3/uL
(1.2-3.4)
Absolute Monos (auto) 0.8 H 10^3/uL
(0.1-0.6)
Neutrophils % 78.0 H %
(42.2-75.2)
Lymphocytes % 8.5 L %
(20.5-51.1)
Monocytes % 10.0 H %
(1.7-9.3)
Sodium 134 L mmol/L
(135-145)
BUN 61 H mg/dl
(7-17)
Creatinine 2.2 H mg/dL
(0.6-1.0)
Glucose 210 H mg/dl
(70-99)
Alkaline Phosphatase 240 H U/L
(38-126)
07/17/24 20:59
07/17/24 20:59
Vital Signs
Initial and Last Documented VS:
Initial Vital Signs
Temp Pulse Resp BP Pulse Ox
97.9 F 84 18 152/81 95
07/17/24 20:00 07/17/24 20:00 07/17/24 20:00 07/17/24 20:00 07/17/24 20:00
Last Documented Vital Signs
Temp Pulse Resp BP Pulse Ox
97.9 F 70 14 124/60 95
07/17/24 20:00 07/17/24 22:19 07/17/24 22:19 07/17/24 22:19 07/17/24 20:00
MDM/Problems Addressed
MDM/Problems Addressed:
79-year-old female history of CHF on Lasix, atrial fibrillation on Eliquis, hypertension, diabetes presenting with hyperkalemia 6.1. Patient reports right-sided neck pain for the past 3 days, no known falls or trauma. Reproducible right sided neck
tenderness to palpation with no overlying erythema or ecchymosis. No carotid bruits bilaterally. Suspect musculoskeletal strain. Will repeat labs, suspect hyperkalemia secondary to specimen hemolyzed.
Labs reviewed. Potassium 4.9. Creatinine 2.2 (baseline fluctuates between 1.2-2). Advised to increase water intake for the next 2 days. Discussed results with patient at bedside. Stable for discharge with PCP follow-up next week
*Critical Care Note
Total Time (30-74mins, 75-104mins- exclusive of procedures): Not Applicable
ED Attending Note
-
Portions of this chart may have been created with voice recognition software.� Occasional wrong word or��sound alike� substitutions may have occurred due to the inherent limitations of voice recognition software.
Discharge Plan
Departure
Patient Disposition: Home (Routine Discharge)
Date of Disposition: 07/17/24
Time of Disposition: 22:11
Patient with high blood pressure during this ER visit?: Yes
Discharge Problem:
KRYSTAL (acute kidney injury)
Instructions: Dehydration, Adult (DC), BLOOD PRESSURE
Prescriptions:
No Action
ferrous sulfate [FeroSul] 325 MG tablet
325 mg PO HS
atorvastatin 40 MG tablet
40 mg PO HS
escitalopram oxalate 10 MG tablet
10 mg PO DAILY
carvedilol [Coreg] 25 mg Tablet
25 mg PO BID
potassium chloride 10 mEq Capsule, Extended Release
10 meq PO BID
doxepin 10 mg Capsule
10 mg PO QPM
Patient Comments:
pt states she doesnt take med anymore
calcium polycarbophil [FiberCon] 625 mg Tablet
625 mg PO BID
furosemide 40 MG tablet
20 mg PO BIDPRN PRN (Reason: weight gain 3 lbs/chf)
Rx Instructions:
give with 40mg to equal 60mg
cyanocobalamin (vitamin B-12) 1,000 mcg Tablet
1,000 mcg PO QPM
pantoprazole [Protonix] 40 mg Tablet,Delayed Release (Dr/Ec)
40 mg PO DAILY
insulin lispro [Humalog KwikPen Insulin] 100 unit/mL Insulin Pen
0 - 14 sliding scale dose SC BID
insulin glargine [Basaglar KwikPen U-100 Insulin] 100 unit/mL (3 mL) Insulin Pen
6 unit SC QPM
magnesium oxide 400 mg magnesium Tablet
400 mg PO BID
cetirizine 10 mg Tablet
10 mg PO DAILY
Eliquis 2.5 mg tablet
2.5 mg PO BID Qty: 60 2RF
furosemide 40 mg Tablet
40 mg PO BID PRN (Reason: weight gain 3 lbs/chf)
Rx Instructions:
give with 20mg = 60mg
acetaminophen [Tylenol] 325 mg Tablet
650 mg PO Q6H PRN (Reason: pain/fever)
loperamide [Imodium A-D] 2 mg Capsule
2 mg PO Q6H PRN (Reason: loose stools)
spironolactone 25 mg Tablet
25 mg PO DAILY
losartan 25 mg Tablet
25 mg PO DAILY
Referrals:
Clay Gibbs DO [Family Provider, Internal Medicine]
Activity Restrictions/Additional Instructions:
Do not take your Lasix tomorrow and drink lots of water for the next 2 days. On Saturday start taking Lasix again as prescribed
Follow-up with primary care doctor next week
Return to the emergency department for new/worsening symptoms
Interventions
Interventions:
*Risk Screen - Suicide Last Done: 07/17/24 20:00
*General Assessment Last Done: 07/17/24 20:00
*Neglect/Abuse Screening Last Done: 07/17/24 20:00
*ED- Fall Risk Assessment Last Done: 07/17/24 21:05
*ED COVID-19 Vaccine History Last Done: 07/17/24 20:00
*Nursing Disposition Last Done: 07/17/24 22:24
Discharge Date and Time
Discharge Date/Time: 07/17/24 22:24
Print Language: IRANIAN
[2024-07-17 20:41] VITALS: BMI 20.5
--- NOTE | 2024-07-17 20:43 | EDRN ---
Pt went to doctor 2 days ago because of swelling in R neck. Pt had blood work done this morning and came here to have an EKG done. Pt went home and was called and told to come to the ED for evaluation of elevated potassium level. Pt has a lump in
L ACF for 1 month one in middle chest for past 1-2 days. Pt has intermittent abd pain. Pt with chronic weakness in legs for past couple years, not worse now. Last episode of diarrhea was last week. Last BM this morning. Pt has urinary
frequency. Appetite is better than usual. Pt denies cp, sob, n/v, fever/chills/cough.
[2024-07-17 20:51] VITALS: BP 122/59
[2024-07-17 21:00] VITALS: BP 127/66
[2024-07-17 21:15] LABS: % Basophils 0.6 % (0-2); % Eosinophils 2.8 % (0-6); % Immature Granulocytes 0.1 % (0-0.5); % Lymphocytes 8.5 % (20.5-51.1); Absolute Basophils 0.1 10^3/uL (0-0.2); Absolute Eosinophils 0.2 10^3/uL (0-0.7); Absolute Lymphocytes 0.7 10^3/uL (1.2-3.4); Absolute Monocytes 0.8 10^3/uL (0.1-0.6); Absolute Neutrophils 6.5 10^3/uL (1.4-6.5); Hematocrit 42.3 % (37.0-47.0); Hemoglobin 14.3 g/dL (12.0-16.0); Mean Corp Hgb Conc. 33.8 g/dL (33.0-37.0); Mean Corpuscular Hgb 31.9 pg (27.0-31.0); Mean Corpuscular Volume 94.4 fL (81.0-99.0); Mean Platelet Volume 10.7 fL (7.4-10.4); Nucleated Red Blood Cells % 0 %; Platelet Count 242 10^3/uL (130-400); Red Blood Cell Count 4.48 10^6/uL (4.20-5.40); Red Cell Dist. Width 14.2 % (11.5-14.5); White Blood Cell Count 8.3 10^3/uL (4.8-10.8)
[2024-07-17 21:31] LABS: ALT (SGPT) 23 U/L (0-35); AST (SGOT) 31 U/L (14-36); Albumin 3.8 g/dl (3.5-5.0); Alkaline Phosphatase 240 U/L (38-126); Blood Urea Nitrogen 61 mg/dl (7-17); Calcium 9.4 mg/dl (8.4-10.2); Carbon Dioxide 25 mmol/L (22-30); Chloride 101 mmol/L (98-107); Estimated Creatinine Clearance 14 ml/min; Glucose 210 mg/dl (70-99); Potassium 4.9 mmol/L (3.5-5.1); Sodium 134 mmol/L (135-145); Total Bilirubin 0.7 mg/dl (0.2-1.3); Total Protein 7.9 g/dl (6.3-8.2); eGFR 21.97
[2024-07-17 22:19] VITALS: BP 124/60
== END 2024-07-17 22:24 | disposition home or self-care (01) ==
LOC: EMR 19:57
PROVIDERS: Emergency Medicine; EMERGENCY PHYSICIAN Emergency Medicine; FAMILY PHYSICIAN Internal Medicine
DX: N17.9 Acute kidney failure, unspecified (principal); E11.9 Type 2 diabetes mellitus without complications; I11.0 Hypertensive heart disease with heart failure; I50.9 Heart failure, unspecified; I48.91 Unspecified atrial fibrillation; Z85.828 Personal history of other malignant neoplasm of skin; Z85.3 Personal history of malignant neoplasm of breast; Z79.01 Long term (current) use of anticoagulants
CPT/HCPCS: 99283; 80053; 85025

== ENCOUNTER 2024-10-15 15:54 | Inpatient (IN) | payer MEDICARE, SELFPAY ==
[2024-10-15] VITALS (7 sets, daily range): BP systolic 99–117; BP diastolic 47–92; BMI 22.4
--- NOTE | 2024-10-15 13:21 | PHANOTE ---
Addendum entered by Shelley Conner 10/15/24 16:46:
called [facility] for missing paperwork
Addendum entered by Shelley Conner 10/15/24 15:40:
recalled [facility] for missing paperwork
Original Note:
med rec note- called [facility] at [phone] for missing paperwork
[2024-10-15 13:42] LABS: Hematocrit 41.5 % (37.0-47.0); Hemoglobin 13.4 g/dL (12.0-16.0); Mean Corp Hgb Conc. 32.3 g/dL (33.0-37.0); Mean Corpuscular Volume 93.3 fL (81.0-99.0); Nucleated Red Blood Cells % 0 %; Platelet Count 235 10^3/uL (130-400); Red Cell Dist. Width 13.8 % (11.5-14.5)
[2024-10-15 13:46] LABS: Glucose - Point of Care 154 mg/dl (70-99)
[2024-10-15 14:08] LABS: ALT (SGPT) 32 U/L (0-35); AST (SGOT) 40 U/L (14-36); Albumin 4.1 g/dl (3.5-5.0); Alkaline Phosphatase 204 U/L (38-126); Blood Urea Nitrogen 56 mg/dl (7-17); Calcium 9.5 mg/dl (8.4-10.2); Carbon Dioxide 23 mmol/L (22-30); Chloride 105 mmol/L (98-107); Glucose 154 mg/dl (70-99); Potassium 6.0 mmol/L (3.5-5.1); Sodium 135 mmol/L (135-145); Total Protein 7.8 g/dl (6.3-8.2); eGFR 23.23
--- NOTE | 2024-10-15 14:45 | ED.GENMED ---
History of Present Illness
General
Chief Complaint: Rectal Bleeding
Source: patient
Exam Limitations: none
Time Seen by Provider: 10/15/24 12:59
Nursing documentation reviewed up to this point in time: agreed with
History of Present Illness
History of Present Illness:
Patient with history of paroxysmal atrial fibrillation on Eliquis, presents to ED secondary to multiple episodes of bloody bowel movements over the past 2 days at home. Denies abdominal pain. Denies nausea or vomiting. Denies trauma. Denies
fever or chills. Denies recent change in medications or diet. Denies dizziness or weakness. Denies shortness of breath. Denies previous history of similar symptoms. Patient has noticed increased amount of blood, along with passage of blood
clots.
Past History
Past History
ED Past Medical History: Arrthythmia, Cancer (skin cancer), CHF, HTN, NIDDM and Other (Atrial fibrillation and atrial flutter, diabetes, hypertension, nonischemic cardiomyopathy, breast cancer, diverticulitis)
ED Past Surgical History: Cardiac (Ablation, cardioversion 01/2018 ischemic, defibrillator)
Patient has exhibited threatening behavior?: No
PSI?: No
Social History
Tobacco: Non-smoker
Alcohol: None
Drug: None
Personal:
Living: with family
Employment: Retired
Family History
Family History: Other (Hypertension, cirrhosis)
Review of Systems
Review of Systems
Allergies reviewed?: Yes
All Other Systems: ROS reviewed and negative except as documented in HPI and ROS
Constitutional: Reports no symptoms
Respiratory: Reports no symptoms; Denies trouble breathing
Cardiac: Reports no symptoms
ABD/GI: Reports bloody stools; Denies abdominal pain, vomiting or diarrhea
Musculoskeletal: Reports no symptoms
Skin: Reports no symptoms
Neurological: Reports no symptoms; Denies dizzy or weakness
Phy Exam
Physical Exam
Physical Exam:
Physical Exam
General: no apparent distress, not acutely ill
Neck: supple. no meningeal signs. normal psoterior pharynx
Heart: s1/s2 regular rate and rhythm, no murmur. equal radial pulses.
Lungs: no acute respiratory distress. clear bilaterally
Abdomen: normal bowel sounds. not tender. Rectal exam ([facility], at bedside): brown stool, heme positive. external hemorrhoid with area of erythema noted
Neuro: alert and oriented x 3. no focal neurological deficits
Skin: no rash
Psychiatric: well kept. interactive and cooperative
Extremities: no edema. no calf tenderness.
Course
Orders/Labs/Results
Orders:
Orders
10/15/24 13:26
Complete Blood Count/With Diff Urgent
Comprehensive Metabolic Panel Urgent
10/15/24 14:31
Electrocardiogram (*1) Urgent
Reason for Study: Other
Other Reason for Exam: hyperkalemia
EKG- Treatment ONCE
10/15/24 14:43
Pantoprazole [Protonix IV] 40 mg IV NOW STA
10/15/24 Dinner
Clear Liquid
At Your Request: Full Participation
10/15/24 15:18
Dextrose 50%-Water [Dextrose 50% Syringe] 12.5 grams IV [id number] PRN
Dextrose 50%-Water [Dextrose 50% Syringe] 25 grams IV NOW STA
Insulin Human Regular [Novolin R] 5 units IV NOW STA
Bedside Glucose PRE IV Insulin- HyperK+ NOW
10/15/24 15:29
Admit/Transfer Patient As Directed
Co-Sign Provider:
Level of Care: Inpatient admission
Assign to:: Telemetry
Physician / Group: shannon leo
Diagnosis: llq pain BRBPR conc. diverticulitis vs bleed, hyperk
Reason for Telemetry: Arrhythmia
Date to Stop Telemetry: 10/18/24
Time to Stop Telemetry: 11:00
Reason for Hospitalization: llq pain BRBPR conc. diverticulitis vs bleed, hyperk
Expected length of stay greater than two midnights?: Yes
ELOS- Estimated Length of Stay in days: 3
I certify the patient meets the requirements for IP care: Yes
Code Status As Directed
Resuscitation Status: Full Code
10/15/24 15:38
PRN Pain Medication Management As Directed
May give lesser potent ordered pain med per pt: Yes
preference::
Protocol:: Medication orders for pain may be administered in a
manner that supports deferring to patient preference
when the pt is:
- Requesting an ordered lesser potent pain medication.
Least to most potent pain medications are defined
as: acetaminophen < NSAID < tramadol < opioids
(morphine, oxycodone, hydromorphone).
- Requesting a lesser dose of the same medication IF
ORDERED.
- Requesting a less intrusive route of administration
if both routes are prescribed by the provider (PO <
IV).
10/15/24 15:40
GASTROINTESTINAL CONSULT Routine
Consulting Provider: Anjum Martin
Was physician already notified: Yes
Reason for consult: brbpr on eliquis llq pain hemorrhoid
10/15/24 16:48
Bedside Glucose POST IV Insulin- HyperK+ Q1HX2,Q2HX2
10/15/24 17:48
Potassium Urgent
Comment: draw 2 hours after regular insulin IV administration
10/15/24 18:24
Acetaminophen [Tylenol] 650 mg PO Q6H PRN pain/fever
10/15/24 18:24
Activity As Directed
Activity Level: As Tolerated
Intake/ Output As Directed
Frequency: Per unit guidelines
Pneumatic Compression Sleeves As Directed
Type: Knee high
Vital Signs As Directed
Frequency: Per unit guidelines
Weight As Directed
Frequency: Daily
Pt Eval And Treat Routine
Activity Level: As Tolerated
DX Deep Vein Thrombosis Video Routine
10/15/24 18:45
Cyanocobalamin [Vitamin B-12] 1,000 mcg PO QPM
10/15/24 20:00
Basic Metabolic Panel Urgent
Magnesium Oxide 400 mg PO BID
10/15/24 22:00
Atorvastatin [Lipitor] 40 mg PO HS
Ferrous Sulfate [Feosol] 325 mg PO HS
10/16/24 06:00
Complete Blood Count/With Diff IN AM
Comprehensive Metabolic Panel IN AM
10/16/24 08:00
Cetirizine HCl [Zyrtec] 10 mg PO DAILY
Escitalopram Oxalate [Lexapro] 10 mg PO DAILY
Pantoprazole [Protonix] 40 mg PO DAILY
10/17/24 06:00
Complete Blood Count/With Diff IN AM
Comprehensive Metabolic Panel IN AM
10/18/24 06:00
Complete Blood Count/With Diff IN AM
Comprehensive Metabolic Panel IN AM
10/18/24 11:00
DC Protocol for Telemetry ONCE
10/19/24 06:00
Complete Blood Count/With Diff IN AM
Comprehensive Metabolic Panel IN AM
Abnormal Lab Results
10/15/24 10/15/24
13:26 13:45
MCHC 32.3 L g/dL
(33.0-37.0)
Absolute Lymphs (auto) 1.1 L 10^3/uL
(1.2-3.4)
Absolute Monos (auto) 0.9 H 10^3/uL
(0.1-0.6)
Lymphocytes % 13.0 L %
(20.5-51.1)
Monocytes % 10.0 H %
(1.7-9.3)
Potassium 6.0 H mmol/L
(3.5-5.1)
BUN 56 H mg/dl
(7-17)
Creatinine 2.1 H mg/dL
(0.6-1.0)
Glucose 154 H mg/dl
(70-99)
AST 40 H U/L
(14-36)
Alkaline Phosphatase 204 H U/L
(38-126)
POC Glucose 154 H mg/dl
(70-99)
10/15/24 13:26
10/15/24 13:26
Vital Signs
Initial and Last Documented VS:
Initial Vital Signs
Temp Pulse Resp BP Pulse Ox
97.5 F 77 16 108/92 95
10/15/24 11:57 10/15/24 11:57 10/15/24 11:57 10/15/24 11:57 10/15/24 11:57
Last Documented Vital Signs
Temp Pulse Resp BP Pulse Ox
97.5 F 70 13 104/47 95
10/15/24 11:57 10/15/24 16:45 10/15/24 16:45 10/15/24 16:33 10/15/24 14:49
MDM/Problems Addressed
MDM/Problems Addressed:
H&H noted. Patient with bowel movement in the ED. When visualized, normal-appearing stool noted with what appears to be drops of bright red blood. At this time, difficult to differentiate intestinal/internal bleeding versus hemorrhoidal bleed,
especially with report of passing large clots at home. As patient is on Eliquis, with multiple episodes of bloody bowel movements, patient will be admitted for further evaluation and treatment. No indication for blood transfusion at this time.
*Pulse Oximetry
SaO2: 95
Oxygen Mode of Delivery: Room air
Patient hypoxic: no
*Critical Care Note
Total Time (30-74mins, 75-104mins- exclusive of procedures): Not Applicable
ED Attending Note
-
Portions of this chart may have been created with voice recognition software.� Occasional wrong word or��sound alike� substitutions may have occurred due to the inherent limitations of voice recognition software.
Discharge Plan
Departure
Patient Disposition: Admit
Date of Disposition: 10/15/24
Time of Disposition: 14:50
Admit to: Med/Surg
Presentation/result/management discussed w/ accepting MD/DO: Hospitalist
Discharge Problem:
Bright red rectal bleeding
Interventions
Interventions:
*Risk Screen - Suicide Last Done: 10/15/24 11:59
*General Assessment Last Done: 10/15/24 13:00
*Neglect/Abuse Screening Last Done: 10/15/24 11:59
*ED- Fall Risk Assessment Last Done: 10/15/24 13:00
*Nursing Disposition Last Done: 10/15/24 18:27
AI-[id number]-Wyllcvefff Assessment Last Done: 10/15/24 13:00
ED- Cardiac Assessment Last Done: 10/15/24 13:00
ED- Pulmonary Assessment Last Done: 10/15/24 13:00
Discharge Date and Time
Discharge Date/Time: 10/15/24 18:29
--- NOTE | 2024-10-15 14:58 | HPS.HSE ---
Addendum entered and electronically signed by Sang Michel MD 10/15/24 18:00:
This is an addendum to H&P written by Lilliana Hairston on 10/15/24. �Patient seen and examined independently with [facility].
79-year-old female past medical history of CHF, permanent atrial fibrillation on Eliquis, CKD 3B, hyperlipidemia, depression, hypertension, GERD, type 2 diabetes, breast cancer status postlumpectomy, T12 compression fracture, presenting with
multiple bloody bowel movements with clots for the past 2 days. �No abdominal pain. �No nausea or vomiting.
Vital signs normal. �On rectal examination there is external hemorrhoid with erythema, normal-appearing stool that is heme positive with drops of bright red blood.�
Labs show potassium of 6.
Patient with rectal bleeding likely secondary to external hemorrhoid versus diverticular bleeding. �Hyperkalemia secondary to losartan/spironolactone use in the setting of CKD 3.
Hold Eliquis.� Clear liquid diet. �GI consulted.
Hold losartan/spironolactone. �Insulin dextrose given for hyperkalemia. �Recheck BMP in 4 hours.
Original Note:
Family Physician
-
Family Physician: Clay Gibbs
Chief Complaint
-
Bright red blood per rectum x 2 days
History of Present Illness
79-year-old female from home complaining of multiple episodes of bloody bowel movement over the past 2 days. She describes them sitting on the toilet bright red blood drips from her rectum. In the ER she was noted to have an external hemorrhoid
with possible recent bleeding along with brown stool that was heme positive. She has a flesh tone large external hemorrhoid on my exam no obvious bleeding at that site however has dried brown stool with bright red blood behind it on her left
buttocks. She is complaining of left lower quadrant abdominal pain on palpation only. She did take her Eliquis this a.m. She is on Eliquis for history of A-fib/a flutter. Hemoglobin is stable at 13.4. She denies nausea, vomiting, diarrhea,
chest pain, palpitations, cough, shortness of breath, fever, chills, headache.
She has past medical history permanent A-fib, pulmonary vein isolation/atrial ventricular junction ablation, HLD, HTN, chronic CHF, CKD 3B depression, GERD, DM 2, breast cancer status post lumpectomy, lung micronodule, T12 compression fracture.
Medical History
Past Medical History
Past Medical History: Reports Other
Additional Past Medical History:
GERD
Diverticulitis
Hyperlipidemia
Hypertension
A flutter
Diabetes
Depression
Iron deficiency anemia
Chronic systolic heart failure
AICD
Pulmonary hypertension
CAD
Permanent A-fib
Past Surgical History: Reports Other
Additional Past Surgical History:
Cardioversion
Cataract right eye
Left breast lumpectomy
Pacemaker placement
Cardiac ablation
Social History
Tobacco: Non-smoker
Alcohol: None
Drug: None
Personal:
Living: With Family (With at [facility])
Employment: Retired
Family History
Family History: Not pertinent
Allergies / Home Medications
Allergies reflects when Allergies were last updated in [facility].
Home Medications with original date entered in [facility]
Allergy/Medication List:
Allergies
Allergy/AdvReac Type Severity Reaction Status Date / Time
RICK Inhibitors Allergy upset Verified 07/17/24 20:00
stomach
amoxicillin (From Augmentin) Allergy upset Verified 07/17/24 20:00
stomach
clavulanic acid (From Allergy upset Verified 07/17/24 20:00
Augmentin) stomach
Home Medications
ferrous sulfate 325 mg (65 mg iron) tablet (FeroSul) 325 mg PO HS Supplement 06/11/18
atorvastatin 40 mg tablet 40 mg PO HS High cholesterol 11/08/20
escitalopram oxalate 10 mg tablet 10 mg PO DAILY Depression 05/04/21
calcium polycarbophil 625 mg tablet (FiberCon) 625 mg PO BID Constipation 03/28/22
carvedilol 25 mg tablet (Coreg) 25 mg PO BID atrial fibrillation 03/28/22
furosemide 40 mg tablet 20 mg PO BIDPRN PRN weight gain 3 lbs/chf 03/28/22
potassium chloride 10 mEq capsule,extended release 10 meq PO BID Electrolyte Repletion 03/28/22
cyanocobalamin (vitamin B-12) 1,000 mcg tablet 1,000 mcg PO QPM Supplement 09/25/22
insulin glargine 100 unit/mL (3 mL) subcutaneous pen (Basaglar KwikPen U-100 Insulin) 6 unit SC QPM Diabetes 09/25/22
insulin lispro 100 unit/mL subcutaneous pen (Humalog KwikPen (U-100) Insulin) 0 - 14 sliding scale dose SC BID Diabetes 09/25/22
magnesium oxide 400 mg PO BID Electrolyte Repletion 09/25/22
pantoprazole 40 mg tablet,delayed release (Protonix) 40 mg PO DAILY Gastrointestinal Issue 09/25/22
cetirizine 10 mg tablet 10 mg PO DAILY Allergies 02/18/24
apixaban 2.5 mg tablet (Eliquis) 2.5 mg PO BID #60 tabs 02/21/24
acetaminophen 325 mg tablet (Tylenol) 650 mg PO Q6H PRN pain/fever 07/17/24
furosemide 40 mg tablet 40 mg PO BID PRN weight gain 3 lbs/chf 07/17/24
losartan 25 mg tablet 25 mg PO DAILY 07/17/24
spironolactone 25 mg tablet 25 mg PO DAILY 07/17/24
Review of Systems
-
History Source: Patient and Family ( at bedside)
A 12 point ROS was completed and negative except as noted: Yes
Constitutional: Denies Fever or Fatigue
EENT: Denies Sore Throat or Runny Nose
Respiratory: Denies Cough or Trouble Breathing
Cardiac: Denies Chest Pain, Diaphoresis, Palpitations or Syncope
Abdomen/GI: Reports Abdominal Pain (Left lower quadrant) and Bloody Stools (Bright red liquid around brown stool); Denies Nausea, Vomiting, Diarrhea or Constipated
: Denies Dysuria, Frequency, Flank Pain, Incontinence or Difficulty Voiding
Musculoskeletal: Denies Joint Pain or Edema
Skin: Denies Itching or Rash
Neurological: Denies Dizzy, Headache or Weakness
Endocrine: Reports No Symptoms
Hematologic/Lymphatic: Reports No Symptoms
Psych: Reports Calm
Physical Exam
Vital Signs
Vital Signs
Temp Pulse Resp BP Pulse Ox
97.5 F 70 24 104/54 95
10/15/24 11:57 10/15/24 14:00 10/15/24 14:00 10/15/24 14:00 10/15/24 14:49
Physical Exam
General: Comfortable and Conversant; No Pain, Fever or Chills
HEENT: NormoCephalic, Anicteric, Moist mucous membranes, PERRLA, [place] Conjunctivae and No Ptosis
Respiratory: Clear; No Wheezes, Rales or Rhonchi
Cardiac: S1/S2 and Regular Rhythm; No Murmur, Rub or Gallop
Breast: Deferred by me
GI: Soft, Non Distended, Normal Bowel Sounds and Tender (Left lower quadrant)
Rectal: Hem Positive (Brown stool with bright red around) and Hemorrhoids (Large external/toned hemorrhoid not thrombosed)
Genito-urinary: Deferred by me
Musculoskeletal: No Clubbing, No Cyanosis and No Edema
Skin: Warm and Dry; No Rash
Neuro: AO x 3, No Motor Deficits, Nonfocal/grossly intact, Cranial Nerves Intact and No Sensory Deficits; No Slurred Speech, Facial Droop, Tremors or Sedated
Psych: Calm
Laboratory Results
-
10/15/24 13:26
10/15/24 13:26
Laboratory Results
Total Bilirubin 0.8 mg/dl (0.2-1.3) 10/15/24 13:26
AST 40 U/L (14-36) H 10/15/24 13:26
ALT 32 U/L (0-35) 10/15/24 13:26
Alkaline Phosphatase 204 U/L (38-126) H 10/15/24 13:26
Data Reviewed
-
Lab Data: Labs Reviewed by me
Impression/Plan
-
Impression/plan:
Admit to telemetry
#Bright red blood per rectum/left lower quadrant pain concern for possible diverticulitis versus diverticular bleed versus hemorrhoidal
#Nontender external Hemorrhoid with possible recently bleeding
Heme positive brown stool
Hgb stable 13.4
Follow hemoglobin
-Clear liquid
-Hold Eliquis
-Consult GI patient evaluated by GI CT abdomen pelvis canceled
#Acute hyperkalemia due to potassium supplementation/spironolactone
K 6
-Hold potassium supplementation, spironolactone, losartan
-Regular insulin 5 units IV, D5W now
Follow BMP at 8 PM
#Permanent A-fib/paroxysmal a flutter
#History PVI/AVJ ablation
-Hold Eliquis patient took Eliquis this a.m. 10/15/2024
Hold Coreg 25 mg twice daily due to hypotension
#History of defibrillator
#CKD 4
Creat 2.1 appears baseline, GFR 23
Follow BMP
#HTN
BP 104/54
-Hold Coreg 25 mg twice daily, losartan due to hypotension
#HLD
-Continue statin
#Chronic heart failure
#Pulm HTN
February 2024 echo EF 50-55%, stage III diastolic dysfunction moderate AR/MR
- Hold Lasix, spironolactone
#Depression
-Continue Lexapro
#GERD
Continue PPI
#DM 2
Accu-Cheks with SSI low, check HgbA1c
-Clear liquid diet
-Hold Basaglar 6 units p.m.
#Chronic ambulatory dysfunction
Uses walker for long distance
Other PMH:
History of breast cancer s/p lumpectomy
History of lung micronodules
History of T12 compression fracture
DVT prophylaxis
SCDs
Full code per patient
--- NOTE | 2024-10-15 16:03 | CON.GI ---
Consultation
-
Date/Time Consultation Requested: 10/15/24 2pm
Date/Time Consultation Performed: 10/15/24 3:00
Requesting Provider: Nikole
Performing Provider: Marielena
Reason for Consultation: rectal bleeding
Medical History
Chief Complaint / HPI
Chief Complaint: rectal bleeding
History of Present Illness:
This patient is an 79-year-old woman with a history of multiple small bloody bowel movements since yesterday afternoon. She states she had 3 or 4 of the and had no abdominal pain with them. She does not have any nausea or vomiting or dizziness.
She also knows there is no stool coming out of her rectum at the time. She does have a history of internal hemorrhoids and diverticular disease based on a colonoscopy done in 2020. She does take Eliquis for atrial fibrillation. In the emergency
room her hemoglobin was stable. She has never had overt rectal bleeding in the past. She does not take adequate fiber supplementation
Past Medical History
Past Medical History: Other (GERD, diverticular disease, atrial fibrillation, diabetes, pulmonary hypertension, coronary disease, hyperlipidemia, breast cancer, chronic kidney disease)
Past Surgical History: Other (Lumpectomy, cataract, pacemaker)
Social History
Tobacco: Non-Smoker
Alcohol: None
Family History
Family History: Reviewed & Not Pertinent
Allergies / Home Medications
Allergy/AdvReac Type Severity Reaction Status Date / Time
RICK Inhibitors Allergy upset Verified 07/17/24 20:00
stomach
amoxicillin (From Augmentin) Allergy upset Verified 07/17/24 20:00
stomach
clavulanic acid (From Allergy upset Verified 07/17/24 20:00
Augmentin) stomach
�Medication �Instructions �Recorded
ferrous sulfate 325 mg (65 mg 325 mg PO HS Supplement 06/11/18
iron) tablet (FeroSul)
atorvastatin 40 mg tablet 40 mg PO HS High cholesterol 11/08/20
escitalopram oxalate 10 mg tablet 10 mg PO DAILY Depression 03/24/22
calcium polycarbophil 625 mg 625 mg PO BID Constipation 03/28/22
tablet (FiberCon)
carvedilol 25 mg tablet (Coreg) 25 mg PO BID atrial fibrillation 03/28/22
furosemide 40 mg tablet 20 mg PO BIDPRN PRN weight gain 3 03/28/22
lbs/chf
potassium chloride 10 mEq 10 meq PO BID Electrolyte Repletion 03/28/22
capsule,extended release
cyanocobalamin (vitamin B-12) 1,000 mcg PO QPM Supplement 09/25/22
1,000 mcg tablet
insulin glargine 100 unit/mL (3 6 unit SC QPM Diabetes 09/25/22
mL) subcutaneous pen (Basaglar
KwikPen U-100 Insulin)
insulin lispro 100 unit/mL 0 - 14 sliding scale dose SC BID 09/25/22
subcutaneous pen (Humalog KwikPen Diabetes
(U-100) Insulin)
magnesium oxide 400 mg PO BID Electrolyte Repletion 09/25/22
pantoprazole 40 mg tablet,delayed 40 mg PO DAILY Gastrointestinal 09/25/22
release (Protonix) Issue
cetirizine 10 mg tablet 10 mg PO DAILY Allergies 02/18/24
apixaban 2.5 mg tablet (Eliquis) 2.5 mg PO BID #60 tabs 02/21/24
acetaminophen 325 mg tablet 650 mg PO Q6H PRN pain/fever 07/17/24
(Tylenol)
furosemide 40 mg tablet 40 mg PO BID PRN weight gain 3 07/17/24
lbs/chf
losartan 25 mg tablet 25 mg PO DAILY 07/17/24
spironolactone 25 mg tablet 25 mg PO DAILY 07/17/24
Review of Systems
-
All other systems: A 12 pt ROS was Negative except as stated above in HPI
Vital Signs
Temp Pulse Resp BP Pulse Ox
97.5 F 70 20 104/54 95
10/15/24 11:57 10/15/24 15:15 09/04/25 15:15 10/15/24 14:00 10/15/24 14:49
Physical Exam
Exam
General: No Apparent Distress
Cardiac: S1/S2
GI: Soft, Non Tender and Non Distended
Rectal: Other (no masses, small hemorrhoid, blood around anal canal, no stool)
Skin: Warm
Neuro: Awake and Oriented
Psych: Calm
Results
WBC 8.5 10^3/uL (4.8-10.8) 10/15/24 13:26
Hgb 13.4 g/dL (12.0-16.0) 10/15/24 13:26
Hct 41.5 % (37.0-47.0) 10/15/24 13:26
MCV 93.3 fL (81.0-99.0) 10/15/24 13:26
Plt Count 235 10^3/uL (130-400) 10/15/24 13:26
Absolute Neuts (auto) 6.2 10^3/uL (1.4-6.5) 10/15/24 13:26
Sodium 135 mmol/L (135-145) 10/15/24 13:26
Potassium 6.0 mmol/L (3.5-5.1) H 10/15/24 13:26
Chloride 105 mmol/L (98-107) 10/15/24 13:26
Carbon Dioxide 23 mmol/L (22-30) 10/15/24 13:26
BUN 56 mg/dl (7-17) H 10/15/24 13:26
Creatinine 2.1 mg/dL (0.6-1.0) H 10/15/24 13:26
Calcium 9.5 mg/dl (8.4-10.2) 10/15/24 13:26
Total Bilirubin 0.8 mg/dl (0.2-1.3) 10/15/24 13:26
AST 40 U/L (14-36) H 10/15/24 13:26
ALT 32 U/L (0-35) 10/15/24 13:26
Alkaline Phosphatase 204 U/L (38-126) H 10/15/24 13:26
Assessment / Plan
-
This patient is an 79-year-old woman with a history of atrial fibrillation who is on Eliquis with her last dose this morning. She did have several episodes of blood per rectum but has a stable hemoglobin. She does not have any other symptoms. I
do think this is a lower GI bleed likely hemorrhoids but could be distal diverticular disease. For now would do the following:
1. Clear liquids
2. Monitor hemoglobin and clinical signs of rebleeding
3. If she does not bleed anymore it would be reasonable for her to have an outpatient visit to determine if she truly needs a colonoscopy. She did have one 4 years ago
4. If she does continue to bleed we would consider a flexible sigmoidoscopy versus a full colonoscopy. Her last dose of Eliquis was this morning which limits our ability to do the procedure now.
-
-
Thank you for consultation and allowing me to participate in the patient's care. Please call the substation supervisor GI physician during the after hours with any questions or concerns.
[2024-10-15] MEDS: NOVOLIN R 5 UNITS IV (16:22)
[2024-10-15 16:25] LABS: Glucose - Point of Care 103 mg/dl (70-99)
[2024-10-15] MEDS: DEXTROSE 50% SYRINGE 25 GRAMS IV ×2 (16:25→21:49)
[2024-10-15] MEDS: PROTONIX IV 40 MG IV (16:27)
--- NOTE | 2024-10-15 16:30 | CM ---
Met with patient and Primary Contact/POA/DaughterLisa #[phone] @ bedside in the ED
Per Daughter, patient's is NOT the primary contact; he hard of hearing
Pharmacy verified: [email or web address]
Patient lives w/ @ [facility]; bathroom has walk-in shower w/ seat and grab bar; raised toilet seat
PLOF: patient reported she is independent with personal care, ambulates with a Rollator PRN; goes to dining room for meals; drives; Staff at the facility administers medications and checks blood sugar w/ glucometer
SNF stay 2021 @ [facility]; no home health/VN history
Daughter will provide transport
Discharge plan to be determined pending hospital course; case management will monitor for needs/services; and
per request contact patient's daughter, Lisa @ #[phone] to discuss discharge plan if/when needs are identified
[2024-10-15 17:09] LABS: Glucose - Point of Care 214 mg/dl (70-99)
[2024-10-15] MEDS: MAGNESIUM OXIDE 400 MG PO (19:48)
[2024-10-15] MEDS: VITAMIN B-12 1000 MCG PO (19:48)
[2024-10-15 20:06] LABS: Blood Urea Nitrogen 59 mg/dl (7-17); Calcium 10.0 mg/dl (8.4-10.2); Carbon Dioxide 25 mmol/L (22-30); Chloride 104 mmol/L (98-107); Estimated Creatinine Clearance 15 ml/min; Glucose 170 mg/dl (70-99); Potassium 5.8 mmol/L (3.5-5.1); Sodium 138 mmol/L (135-145); eGFR 23.23
[2024-10-15 21:31] LABS: Glucose - Point of Care 107 mg/dl (70-99)
[2024-10-15] MEDS: LIPITOR 40 MG PO (21:49)
[2024-10-15] MEDS: FEOSOL 325 MG PO (21:49)
[2024-10-15] MEDS: NOVOLIN R 0.05 UNITS IV (21:54)
[2024-10-15 23:06] LABS: Glucose - Point of Care 173 mg/dl (70-99)
[2024-10-16 00:11] LABS: Glucose - Point of Care 116 mg/dl (70-99)
[2024-10-16 00:26] LABS: Potassium 4.6 mmol/L (3.5-5.1)
[2024-10-16 02:07] LABS: Glucose - Point of Care 77 mg/dl (70-99)
[2024-10-16 03:16] VITALS: BP 110/38
[2024-10-16 04:09] LABS: Glucose - Point of Care 115 mg/dl (70-99)
[2024-10-16 05:47] VITALS: BMI 22.4
[2024-10-16 07:04] VITALS: BP 129/70
--- NOTE | 2024-10-16 07:18 | W.PN.HOSP.TC ---
Today's Communication/Plan
-
Await GI input
Lokelma 5g once for Hyperkalemia
Hold Aldactone, Losartan
Possible discharge?
Assessment / Plan
Assessment / Plan
#Bright red blood per rectum/left lower quadrant pain concern for possible diverticular bleed vs hemorrhoidal
#Nontender External/ internal Hemorrhoid with possible recently bleeding
Heme positive bloody stool
Hb 13.6 - stable
Consult GI
On Clear liquids diet
Held Eliquis 10/15
last colonoscopy 4 years ago
monitor Hb and clinical signs of rebleeding
-if no bleeding opt f/u for colonoscopy?
-if continue bleeding flexible sigmoidoscopy vs full colonoscopy
#Acute hyperkalemia due to potassium supplementation/spironolactone
-Hold spironolactone, losartan
-Regular insulin 5 + 10 units IV, D5W 10/15
-K 6--> 4.6--> 5.2 elevated--> Lokelma 5g once
-monitor BMP
#Permanent A-fib/paroxysmal a flutter
#History PVI/AVJ ablation
-Hold Eliquis for possible colonsocopy
-BP1- Hold Coreg 25 mg Q12h
#CKD 4
Creat 2 appears baseline, GFR 24.64
Follow BMP
#Hypertension
BP - Hold Coreg 25 mg twice daily, losartan
#Hyperlipidemia
-Continue statin
#Chronic heart failure
#Pulm HTN
03/07 Echo: EF 50-55%, stage III diastolic dysfunction moderate AR/MR
Hold Lasix, spironolactone
#Depression
-Continue Lexapro
#GERD
Continue PPI
#DM 2
Accu-Cheks with SSI low
HgbA1c 6.9
-Clear liquid diet
-Hold Basaglar 6U p.m.
#Chronic ambulatory dysfunction
Uses walker for long distance
#History of defibrillator
Other PMH:
History of breast cancer s/p lumpectomy
History of lung micronodules
History of T12 compression fracture
DVT prophylaxis
SCDs
Full code per patient
Anticipated Discharge: Within 24 hours
Subjective/Interval History
-
Date of Service: October 16, 2024
She looks comfortable. She reports 1 bright red bm the morning. She denies abdominal pain, pain with defecation, no nausea, no dizziness.
Objective Data
-
Labs:
Laboratory Results
10/15/24 10/15/24 10/15/24
19:44 19:44 23:57
WBC
Hgb
Hct
Plt Count
Sodium 138
Potassium Cancelled 5.8 H 4.6
Chloride 104
Carbon Dioxide 25
BUN 59 H
Creatinine 2.1 H
Glucose 170 H
Calcium 10.0
Total Bilirubin
AST
ALT
Alkaline Phosphatase
10/16/24
06:00
WBC Pending
Hgb Pending
Hct Pending
Plt Count Pending
Sodium Pending
Potassium Pending
Chloride Pending
Carbon Dioxide Pending
BUN Pending
Creatinine Pending
Glucose Pending
Calcium Pending
Total Bilirubin Pending
AST Pending
ALT Pending
Alkaline Phosphatase Pending
Vital Signs:
Vital Signs
Temp Pulse Resp BP Pulse Ox
98 F 70 16 110/38 93
10/16/24 03:16 10/16/24 03:16 10/16/24 03:16 10/16/24 03:16 10/16/24 03:16
Review of Systems
-
History Source: Patient
Constitutional: Reports No Symptoms
EENT: Reports No Symptoms Reported
Respiratory: Reports No Symptoms
Cardiac: Reports No Symptoms
Abdomen/GI: Reports Bloody Stools
Breast: Reports No Symptoms
Genitourinary: Reports No Symptoms
Musculoskeletal: Reports No Symptoms
Skin: Reports No Symptoms
Neuro: Reports No Symptoms
Endocrine: Reports No Symptoms
Hematologic / Lymphatic: Reports No Symptoms
Physical Exam
-
General: Well Developed, Well Nourished, No Apparent Distress and Comfortable
HEENT: Normocephalic and Atraumatic
Respiratory: Clear to Auscultation
Cardiac: Regular Rhythm and S1/S2
Breast: Deferred by me
GI: Soft, Nontender and Nondistended
Rectal: Hem Positive
Genito-urinary: Deferred by me
Musculoskeletal: No Clubbing, No Cyanosis and No Edema
Skin: Warm and Dry
Neuro: AO x 3
Psych: Calm
[2024-10-16 08:28] VITALS: BP 132/68; PULSE 71; O2SAT 98
[2024-10-16 08:37] LABS: Glucose - Point of Care 116 mg/dl (70-99)
[2024-10-16] MEDS: PROTONIX 40 MG PO (08:50)
[2024-10-16] MEDS: ZYRTEC 10 MG PO (08:50)
[2024-10-16] MEDS: MAGNESIUM OXIDE 400 MG PO (08:50)
[2024-10-16] MEDS: LEXAPRO 10 MG PO (08:50)
[2024-10-16 08:53] LABS: ALT (SGPT) 31 U/L (0-35); AST (SGOT) 39 U/L (14-36); Albumin 3.8 g/dl (3.5-5.0); Alkaline Phosphatase 187 U/L (38-126); Blood Urea Nitrogen 49 mg/dl (7-17); Calcium 9.5 mg/dl (8.4-10.2); Carbon Dioxide 23 mmol/L (22-30); Chloride 106 mmol/L (98-107); Estimated Creatinine Clearance 16 ml/min; Glucose 107 mg/dl (70-99); Potassium 5.2 mmol/L (3.5-5.1); Sodium 136 mmol/L (135-145); Total Protein 7.5 g/dl (6.3-8.2); eGFR 24.64
[2024-10-16 08:54] LABS: Hematocrit 40.8 % (37.0-47.0); Hemoglobin 13.6 g/dL (12.0-16.0); Mean Corp Hgb Conc. 33.3 g/dL (33.0-37.0); Mean Corpuscular Volume 92.9 fL (81.0-99.0); Nucleated Red Blood Cells % 0 %; Platelet Count 255 10^3/uL (130-400); Red Cell Dist. Width 13.6 % (11.5-14.5)
[2024-10-16 10:38] LABS: Glycohemoglobin (HgbA1c) 6.9 % (4.0-5.6)
[2024-10-16 11:31] VITALS: BP 123/57
[2024-10-16 12:27] LABS: Glucose - Point of Care 108 mg/dl (70-99)
[2024-10-16] MEDS: LOKELMA 5 GRAM PO (12:44)
--- NOTE | 2024-10-16 13:35 | W.DCSUMMARY ---
Documented by User: Nel Rosa MD, Resident 10/16/24 14:07
Discharge Summary
Discharge Data
Date of Admission: 10/15/24
Date of Discharge: 10/16/24
-
Pending Results: No
Hospital Course
Discharging Physician : Dr. Nel Rosa , Dr. Jose Mendoza
Disposition : Assisted living facility ([facility])
Primary care physician : Clay Birmingham
Principal Discharge diagnosis : Lower GI bleeding
Chronic Discharge diagnosis :
Permanent afib/ paroxysmal flutter
CKD Stage4
Hypertension
Hyperlipidemia
Chronic Heart Failure
Pulmonary Hypertension
Depression
GERD
DM2
History of breast cancer s/p lumpectomy
History of lung micronodules
History of T12 compression fracture
Hospital Course : The patient was presented to ED on the 10/15/2024 with a history of multiple bloody bowel movements with clots for last 2 days. Her Hemoglobin was 13.4 and observed overnight for possible continuous bleeding. Her Eliques was on
hold for possible colonoscopy. Her Hb was stable overnight 13.6. Bleeding likely from Hemorrhoids vs diverticulosis. Her K level was 6, received K binders --K: 5.2. Her aldactone, losartan on hold because of hyperkalemia. She will follow up with GI
Dr. Peguero outpatient regarding colonoscopy.
Follow up with PCP within a week regarding your Hypertension meds. Repeat CMP for hyperkalemia
Follow up with Cardioogy regarding GDMT
Follow up with GI regarding colonoscopy. Scheduled Appt 10/20/2024 at 2PM
Eliquis is on hold until colonoscopy. Holding your Hypertension meds including aldoctane, losartan.
Important imaging findings : none
Procedure findings :none
Discharge Plan
-
Patient Disposition: Assisted Living
Discharge Diagnosis/Procedures: [place] GI bleeding
Condition: Good
Diet: Diabetic, Carb Controlled
Activity: No restrictions
Driving Restrictions: As prior to admission
Bathing Restrictions: None
Blood Work: Repeat CMP
Specialty Instructions: Weigh Daily- Call MD for wt gain/loss 3 lbs overnight/5 lbs in 1 week
Referrals:
Jalen Peguero MD [Active, Gastroenterology] - 10/20/24 2:00 pm
Clay Gibbs DO [Family Provider, Internal Medicine]
Additional Discharge Medication Instructions: Follow up with PCP within a week regarding your Hypertension meds. Repeat CMP for hyperkalemia
Follow up with Cardioogy regarding GDMT
Follow up with GI regarding colonoscopy. Scheduled Appt 10/20/2024 at 2PM
Eliquis is on hold until colonoscopy. Holding your Hypertension meds including aldoctane, losartan.
Prescriptions:
New
escitalopram oxalate 10 mg Tablet
10 mg PO DAILY Qty: 0 0RF
Continued
ferrous sulfate [FeroSul] 325 MG tablet
325 mg PO HS
atorvastatin 40 MG tablet
40 mg PO HS
carvedilol [Coreg] 25 mg Tablet
25 mg PO BID
calcium polycarbophil [FiberCon] 625 mg Tablet
625 mg PO BID
furosemide 40 MG tablet
60 mg PO DAILYPRN PRN (Reason: weight gain 3 lbs/chf)
cyanocobalamin (vitamin B-12) 1,000 mcg Tablet
1,000 mcg PO DAILY
pantoprazole [Protonix] 40 mg Tablet,Delayed Release (Dr/Ec)
40 mg PO DAILY
insulin lispro [Humalog KwikPen Insulin] 100 unit/mL Insulin Pen
1 sliding scale dose SC BID
Rx Instructions:
141-180=4units, 701-903-9tuyty, 221-260=8units
insulin glargine [Basaglar KwikPen U-100 Insulin] 100 unit/mL (3 mL) Insulin Pen
6 unit SC QPM
magnesium oxide 400 mg magnesium Tablet
400 mg PO BID
cetirizine 10 mg Tablet
10 mg PO DAILY
furosemide 40 mg Tablet
40 mg PO DAILY
acetaminophen [Tylenol] 325 mg Tablet
650 mg PO Q6HPRN PRN (Reason: mild pain/fever)
loperamide 2 mg Tablet
2 mg PO Q6HPRN PRN (Reason: dairrhea)
doxepin 10 mg Capsule
10 mg PO HS
Held
Eliquis 2.5 mg tablet
2.5 mg PO BID Qty: 60 2RF
Hold Instructions: Resume on 10/21/24. Hold until colonoscopy Tue at 2pm
spironolactone 25 mg Tablet
25 mg PO DAILY
Hold Instructions: Hyperkalemia. Hold until seen by pcp
losartan 25 mg Tablet
25 mg PO DAILY
Hold Instructions: Hyperkalemia. Hold until seen by pcp
potassium chloride 10 mEq Tablet Extended Release
10 meq PO BID
Hold Instructions: Hyperkalemia. Hold until seen by pcp
Discharge Orders:
Discharge Patient (As Directed); Ordered 10/16/24
Ordered By: Nel Rosa
Discharge Date and Time
Print Language: TAJIK

Documented by User: Jose Mendoza DO 10/16/24 14:47
Discharge Summary
Discharge Data
Date of Admission: 10/15/24
Date of Discharge: 10/16/24
Total time spent discharging patient (in min): 33
Discharge Plan
-
Patient Disposition: Assisted Living
Discharge Diagnosis/Procedures: [place] GI bleeding
Condition: Good
Diet: Diabetic, Carb Controlled
Activity: No restrictions
Driving Restrictions: As prior to admission
Bathing Restrictions: None
Blood Work: Repeat CMP
Specialty Instructions: Weigh Daily- Call MD for wt gain/loss 3 lbs overnight/5 lbs in 1 week
Referrals:
Jalen Peguero MD [Active, Gastroenterology] - 10/20/24 2:00 pm
Clay Gibbs DO [Family Provider, Internal Medicine]
Additional Discharge Medication Instructions: Follow up with PCP within a week regarding your Hypertension meds. Repeat CMP for hyperkalemia
Follow up with Cardioogy regarding GDMT
Follow up with GI regarding colonoscopy. Scheduled Appt 10/20/2024 at 2PM
Eliquis is on hold until colonoscopy. Holding your Hypertension meds including aldoctane, losartan.
Prescriptions:
New
escitalopram oxalate 10 mg Tablet
10 mg PO DAILY Qty: 0 0RF
Continued
ferrous sulfate [FeroSul] 325 MG tablet
325 mg PO HS
atorvastatin 40 MG tablet
40 mg PO HS
carvedilol [Coreg] 25 mg Tablet
25 mg PO BID
calcium polycarbophil [FiberCon] 625 mg Tablet
625 mg PO BID
furosemide 40 MG tablet
60 mg PO DAILYPRN PRN (Reason: weight gain 3 lbs/chf)
cyanocobalamin (vitamin B-12) 1,000 mcg Tablet
1,000 mcg PO DAILY
pantoprazole [Protonix] 40 mg Tablet,Delayed Release (Dr/Ec)
40 mg PO DAILY
insulin lispro [Humalog KwikPen Insulin] 100 unit/mL Insulin Pen
1 sliding scale dose SC BID
Rx Instructions:
141-180=4units, 543-725-2cnwfl, 221-260=8units
insulin glargine [Basaglar KwikPen U-100 Insulin] 100 unit/mL (3 mL) Insulin Pen
6 unit SC QPM
magnesium oxide 400 mg magnesium Tablet
400 mg PO BID
cetirizine 10 mg Tablet
10 mg PO DAILY
furosemide 40 mg Tablet
40 mg PO DAILY
acetaminophen [Tylenol] 325 mg Tablet
650 mg PO Q6HPRN PRN (Reason: mild pain/fever)
loperamide 2 mg Tablet
2 mg PO Q6HPRN PRN (Reason: dairrhea)
doxepin 10 mg Capsule
10 mg PO HS
Held
Eliquis 2.5 mg tablet
2.5 mg PO BID Qty: 60 2RF
Hold Instructions: Resume on 10/21/24. Hold until colonoscopy Tue at 2pm
spironolactone 25 mg Tablet
25 mg PO DAILY
Hold Instructions: Hyperkalemia. Hold until seen by pcp
losartan 25 mg Tablet
25 mg PO DAILY
Hold Instructions: Hyperkalemia. Hold until seen by pcp
potassium chloride 10 mEq Tablet Extended Release
10 meq PO BID
Hold Instructions: Hyperkalemia. Hold until seen by pcp
Discharge Orders:
Discharge Patient (As Directed); Ordered 10/16/24
Ordered By: Nel Rosa
Discharge Date and Time
Print Language: TAJIK
--- NOTE | 2024-10-16 13:53 | CM ---
Reviewed the chart notes and spoke with Paulette sim at [facility]. Patient for discharge today. Daughter to transport.
Plan: Discharge back to .
Call report to: [phone]
Fax report to: [phone]
[2024-10-16 15:00] VITALS: BP 136/73
== END 2024-10-16 16:16 | disposition home or self-care (01) | DRG 394 ==
LOC: 2 NORTH 15:54
PROVIDERS: Clinical Nurse Specialist Family Health; Nurse Practitioner Family; ADMITTING PHYSICIAN Hospitalist; ATTENDING PHYSICIAN Internal Medicine; EMERGENCY PHYSICIAN Emergency Medicine; FAMILY PHYSICIAN Internal Medicine; OTHER PHYSICIAN Internal Medicine
DX: K64.4 Residual hemorrhoidal skin tags (principal); I13.0 Hypertensive heart and chronic kidney disease with heart failure and stage 1 through stage 4 chronic kidney disease, or unspecified chronic kidney disease; I48.21 Permanent atrial fibrillation; N18.4 Chronic kidney disease, stage 4 (severe); I48.92 Unspecified atrial flutter; I50.22 Chronic systolic (congestive) heart failure; K62.5 Hemorrhage of anus and rectum; E11.22 Type 2 diabetes mellitus with diabetic chronic kidney disease; E78.00 Pure hypercholesterolemia, unspecified; I27.20 Pulmonary hypertension, unspecified; F32.A Depression, unspecified; K21.9 Gastro-esophageal reflux disease without esophagitis; Z85.3 Personal history of malignant neoplasm of breast; Z95.810 Presence of automatic (implantable) cardiac defibrillator; E87.5 Hyperkalemia; Z79.01 Long term (current) use of anticoagulants; D50.9 Iron deficiency anemia, unspecified; I25.10 Atherosclerotic heart disease of native coronary artery without angina pectoris; Z79.4 Long term (current) use of insulin; Z79.899 Other long term (current) drug therapy; Z88.0 Allergy status to penicillin
CPT/HCPCS: 80048; 80053; 82962; 83036; 84132; 85025; 86850; 86900; 86901; 93005; 96374; 97161; 99284

== ENCOUNTER 2024-10-22 06:15 | Day surgery (SDC) | payer MEDICARE, SELFPAY ==
[2024-10-22 07:39] LABS: Glucose - Point of Care 132 mg/dl (70-99)
== END 2024-10-22 09:01 | disposition home or self-care (01) ==
LOC: GI 06:15
PROVIDERS: ATTENDING PHYSICIAN Internal Medicine
DX: K92.1 Melena (principal); K57.30 Diverticulosis of large intestine without perforation or abscess without bleeding; K64.8 Other hemorrhoids; D12.2 Benign neoplasm of ascending colon; D12.4 Benign neoplasm of descending colon
CPT/HCPCS: 45385; 82962; 88305